=== PATIENT | male | born 1955 | race African-American/Black ===

== ENCOUNTER 2016-06-17 23:44 | Emergency (ER) | payer MEDICARE, MEDICAID ==
[~2016-06-17] VITALS: Ht 185.4 cm; Wt 103.0 kg
[~2016-06-17 23:44] MED LIST: BUM1 PO; CELL2 PO; EPOGEN; FAMO40TA35 PO; KEPP250 PO; LABE100T PO; PHOSPHA; PRED5TAB48 PO; PROG1 PO; SULF1TAB47 PO; TAMS-11 PO; VALCYTE
[2016-06-18] MEDS ORDERED: MORPHINE SULFATE 4 MG/ML CPJ (NOT FOR IM USE) IV STA (01:11)
[2016-06-18] MEDS ORDERED: ONDANSETRON HCL 4MG/2ML VIAL IV STA (01:11)
[2016-06-18] MEDS ORDERED: LABETALOL 5MG/ML SYR 20 MG/4 ML SYRINGE IV ONE (01:15)
[2016-06-18 01:50] LABS: HEMATOCRIT. 34.5 % (42.0-52.0); HEMOGLOBIN. 10.4 g/dL (14.0-18.0); MEAN CORPUSCULAR HEMOGLOBIN 25.4 pg (28.0-32.0); MEAN CORPUSCULAR HGB CONC 30.1 g/dL (31.0-37.0); MEAN CORPUSCULAR VOLUME 84.2 fL (80.0-94.0); MEAN PLATELET VOLUME 8.1 fl (7.4-10.4); PLATELET 161 x1000/uL (130-400); RED BLOOD CELL COUNT 4.09 mill/uL (4.7-6.1); RED CELL DISTRIBUTION WIDTH 17.7 % (11.6-14.6)
[2016-06-18 01:51] LABS: DIFFERENTIAL COMMENT 1
[2016-06-18 01:59] LABS: CALCIUM 8.3 mg/dL (8.5-10.1)
[2016-06-18] MEDS ORDERED: HYDRALAZINE 20MG/ML VIAL IV ONE (02:30)
[2016-06-18] MEDS ORDERED: MORPHINE SULFATE 4 MG/ML CPJ (NOT FOR IM USE) IV ONE (02:30)
[2016-06-18 02:39] LABS: PLATELET ESTIMATE NORMAL
[2016-06-18 03:45] VITALS: BP 144/87
[2016-06-20] MEDS ORDERED: LABE300T PO (10:39)
== END 2016-06-18 04:15 | disposition home or self-care (01) ==
LOC: ER 23:54
DX: R51 Headache (principal); I10 Essential (primary) hypertension; R11.0 Nausea; Z94.0 Kidney transplant status; Z79.899 Other long term (current) drug therapy
CPT/HCPCS: 36415; 70450; 80048; 85025; 96374; 96375; 96376; 99285; J0360; J2270; J2405; J3490

== ENCOUNTER 2017-08-07 09:14 | Emergency (ER) | payer MEDICAID ==
[2017-08-07] VITALS (8 sets, daily range): BP systolic 108–130; BP diastolic 63–85
[~2017-08-07] VITALS: Ht 185.4 cm; Wt 86.0 kg
[~2017-08-07 09:14] MED LIST changes: +AMLO5TAB4 PO; -BUM1 PO; +BUME1TAB5 PO; -CELL2 PO; -EPOGEN; +FAMO20TA8 PO; -FAMO40TA35 PO; +FERR325T6 PO; +MAGN400T27 PO; +MULT-1146 PO; -PHOSPHA; -PRED5TAB48 PO; -SULF1TAB47 PO; +TACR4TAB PO; -VALCYTE
[2017-08-07 10:38] LABS: EOSINOPHILS % 4.3 % (0.0-5.0); HEMOGLOBIN. 8.4 g/dL (14.0-18.0); LYMPHOCYTES % 12.1 % (20.0-50.0); MEAN CORPUSCULAR HEMOGLOBIN 26.8 pg (28.0-32.0); MEAN CORPUSCULAR VOLUME 86.1 fL (80.0-94.0); MEAN PLATELET VOLUME 7.4 fl (7.4-10.4); MONOCYTES % 10.4 % (2.0-8.0); NEUTROPHILS % 72.2 % (40.0-76.0); PLATELET 381 x1000/uL (130-400); RED BLOOD CELL COUNT 3.14 mill/uL (4.7-6.1); RED CELL DISTRIBUTION WIDTH 16.6 % (11.6-14.6)
[2017-08-07 10:42] LABS: CHLORIDE 99 mEq/L (98-107)
[2017-08-07 10:54] LABS: INR 1.1; PROTHROMBIN TIME 11.5 sec (9.4-11.6)
[2017-08-07] MEDS ORDERED: SODIUM BICARBONATE 4% (2.4MEQ) 5ML VIAL IV ONE (12:33)
[2017-08-07] MEDS ORDERED: LIDOCAINE HCL/PF 1% 10 MG/ML 5ML VIAL ONE (12:33)
[2017-08-07] MEDS ORDERED: HEPARIN 1000 UNITS/ML 10ML ONE (12:33)
[2017-08-07] MEDS ORDERED: CEFAZOLIN 1000MG PREMIX 50 ML IV ONE ×2 (13:14→13:30)
== END 2017-08-07 13:57 | disposition home or self-care (01) ==
LOC: ER 09:14
DX: T82.49XA Other complication of vascular dialysis catheter, initial encounter (principal); I12.0 Hypertensive chronic kidney disease with stage 5 chronic kidney disease or end stage renal disease; N18.6 End stage renal disease; E87.6 Hypokalemia; E88.09 Other disorders of plasma-protein metabolism, not elsewhere classified; E83.52 Hypercalcemia; Z91.09 Other allergy status, other than to drugs and biological substances; Z99.2 Dependence on renal dialysis; Z90.49 Acquired absence of other specified parts of digestive tract; Y84.1 Kidney dialysis as the cause of abnormal reaction of the patient, or of later complication, without mention of misadventure at the time of the procedure; Y92.018 Other place in single-family (private) house as the place of occurrence of the external cause
CPT/HCPCS: 36415; 36569; 36581; 75825; 77001; 80053; 85025; 85610; 96365; 99285; C1750; C1769; J0690; J1642; J1644; J3490; J7050; Z7610

== ENCOUNTER 2017-08-20 12:09 | Emergency (ER) | payer MEDICAID ==
[~2017-08-20] VITALS: Ht 185.4 cm; Wt 87.0 kg
[~2017-08-20 12:09] MED LIST changes: -FAMO20TA8 PO
[2017-08-20 13:38] LABS: BASOPHILS % 0.8 % (0.0-2.0); EOSINOPHILS % 8.4 % (0.0-5.0); HEMATOCRIT. 24.3 % (42.0-52.0); HEMOGLOBIN. 7.7 g/dL (14.0-18.0); LYMPHOCYTES % 12.6 % (20.0-50.0); MEAN CORPUSCULAR HEMOGLOBIN 27.3 pg (28.0-32.0); MEAN PLATELET VOLUME 7.3 fl (7.4-10.4); MONOCYTES % 10.3 % (2.0-8.0); NEUTROPHILS % 67.9 % (40.0-76.0); PLATELET 293 x1000/uL (130-400); RED BLOOD CELL COUNT 2.83 mill/uL (4.7-6.1); RED CELL DISTRIBUTION WIDTH 17.2 % (11.6-14.6)
[2017-08-20 13:43] LABS: INR 1.1; PROTHROMBIN TIME 11.4 sec (9.4-11.6)
[2017-08-20 15:01] VITALS: BP 121/70
== END 2017-08-20 15:02 | disposition home or self-care (01) ==
LOC: ER 13:14
DX: T82.49XA Other complication of vascular dialysis catheter, initial encounter (principal); D64.9 Anemia, unspecified; E83.52 Hypercalcemia; I12.0 Hypertensive chronic kidney disease with stage 5 chronic kidney disease or end stage renal disease; N18.6 End stage renal disease; Y82.8 Other medical devices associated with adverse incidents; Y92.538 Other ambulatory health services establishments as the place of occurrence of the external cause; Z99.2 Dependence on renal dialysis
CPT/HCPCS: 36415; 80048; 85025; 85610; 99284

== ENCOUNTER 2017-08-21 09:00 | Emergency (ER) | payer MEDICAID ==
[2017-08-21] VITALS (7 sets, daily range): BP systolic 119–127; BP diastolic 73–80
[~2017-08-21] VITALS: Ht 185.4 cm; Wt 87.0 kg
[2017-08-21 09:51] LABS: BASOPHILS % 0.8 % (0.0-2.0); EOSINOPHILS % 7.6 % (0.0-5.0); HEMATOCRIT. 25.3 % (42.0-52.0); HEMOGLOBIN. 7.9 g/dL (14.0-18.0); MEAN CORPUSCULAR HEMOGLOBIN 26.7 pg (28.0-32.0); MEAN CORPUSCULAR VOLUME 85.6 fL (80.0-94.0); MEAN PLATELET VOLUME 7.3 fl (7.4-10.4); MONOCYTES % 9.8 % (2.0-8.0); NEUTROPHILS % 71.8 % (40.0-76.0); PLATELET 304 x1000/uL (130-400); RED BLOOD CELL COUNT 2.95 mill/uL (4.7-6.1); RED CELL DISTRIBUTION WIDTH 17.7 % (11.6-14.6)
[2017-08-21 09:58] LABS: CHLORIDE 100 mEq/L (98-107)
[2017-08-21 09:59] LABS: INR 1.1; PROTHROMBIN TIME 11.3 sec (9.4-11.6)
[2017-08-21] MEDS ORDERED: SODIUM BICARBONATE 4% (2.4MEQ) 5ML VIAL IV ONE (12:58)
[2017-08-21] MEDS ORDERED: LIDOCAINE HCL/PF 1% 10 MG/ML 5ML VIAL ONE (12:58)
[2017-08-21] MEDS ORDERED: IOHEXOL-300 50 ML BOTTLE IV ONE ×2 (13:04→14:00)
[2017-08-21] MEDS ORDERED: FENTANYL CITRATE/PF 50MCG/ML 2ML VIAL ONE (13:29)
[2017-08-21] MEDS ORDERED: IOHEXOL-300 100 ML BOTTLE ONE (14:00)
== END 2017-08-21 14:59 | disposition home or self-care (01) ==
LOC: ER 09:00
DX: T82.898A Other specified complication of vascular prosthetic devices, implants and grafts, initial encounter (principal); I12.0 Hypertensive chronic kidney disease with stage 5 chronic kidney disease or end stage renal disease; N18.6 End stage renal disease; Z99.2 Dependence on renal dialysis; Z91.048 Other nonmedicinal substance allergy status; Z90.49 Acquired absence of other specified parts of digestive tract; Y84.1 Kidney dialysis as the cause of abnormal reaction of the patient, or of later complication, without mention of misadventure at the time of the procedure; Y92.018 Other place in single-family (private) house as the place of occurrence of the external cause
CPT/HCPCS: 36415; 36569; 36581; 75825; 77001; 80053; 85025; 85610; 99285; C1750; C1769; J1642; J3490; J7040; Q9967; Z7610; J3010

== ENCOUNTER 2017-11-25 07:35 | Emergency (ER) | payer MEDICAID ==
[~2017-11-25] VITALS: Ht 185.4 cm; Wt 87.6 kg
[2017-11-25 08:53] LABS: BASOPHILS % 0.6 % (0.0-2.0); EOSINOPHILS % 3.1 % (0.0-5.0); HEMATOCRIT. 26.7 % (42.0-52.0); HEMOGLOBIN. 8.2 g/dL (14.0-18.0); LYMPHOCYTES % 10.3 % (20.0-50.0); MEAN CORPUSCULAR HEMOGLOBIN 27.2 pg (28.0-32.0); MEAN CORPUSCULAR VOLUME 88.3 fL (80.0-94.0); MONOCYTES % 8.4 % (2.0-8.0); NEUTROPHILS % 77.6 % (40.0-76.0); PLATELET 647 x1000/uL (130-400); RED BLOOD CELL COUNT 3.03 mill/uL (4.7-6.1); RED CELL DISTRIBUTION WIDTH 24.3 % (11.6-14.6)
[2017-11-25 09:01] LABS: CHLORIDE 105 mEq/L (98-107)
[2017-11-25 09:04] LABS: INR 1.1; PARTIAL THROMBOPLASTIN TIME 29.1 sec (23.4-31.0); PROTHROMBIN TIME 11.5 sec (9.1-11.1)
[2017-11-25 10:14] LABS: PLATELET ESTIMATE INCREASED
[2017-11-25] MEDS ORDERED: FENTANYL CITRATE/PF 50MCG/ML 2ML VIAL ONE (10:58)
[2017-11-25] MEDS ORDERED: CEFAZOLIN 1000MG PREMIX 50 ML IV ONE ×3 (10:59→12:30)
[2017-11-25] MEDS ORDERED: MIDAZOLAM HCL 2 MG/2 ML VIAL ONE (10:59)
[2017-11-25] MEDS ORDERED: MIDAZOLAM HCL 2 MG/2 ML VIAL IV ONE (11:00)
[2017-11-25] MEDS ORDERED: FENTANYL CITRATE/PF 50MCG/ML 2ML VIAL IV ONE (11:00)
[2017-11-25] MEDS ORDERED: PREDNISONE 20MG TABLET PO ONE (11:15)
[2017-11-25] MEDS ORDERED: SODIUM BICARBONATE 4% (2.4MEQ) 5ML VIAL IV ONE (11:26)
[2017-11-25] MEDS ORDERED: LIDOCAINE HCL 1% 20ML VIAL (Pyxis) INJ ONE (11:26)
[2017-11-25 11:38] VITALS: BP 160/69
== END 2017-11-25 14:43 | disposition home or self-care (01) ==
LOC: ER 09:15
DX: N18.6 End stage renal disease (principal); Z99.2 Dependence on renal dialysis; Z90.49 Acquired absence of other specified parts of digestive tract
CPT/HCPCS: 36415; 36581; 36598; 77001; 80053; 85025; 85610; 85730; 96365; 96366; 96375; 99285; C1750; C1769; J0690; J1642; J2250; J3010; J3490; J7040; J7512; Z7610

== ENCOUNTER 2018-01-27 07:23 | Emergency (ER) | payer MEDICARE, MEDICAID ==
[2018-01-27] VITALS (10 sets, daily range): BP systolic 142–171; BP diastolic 80–99
[~2018-01-27] VITALS: Ht 182.9 cm; Wt 91.4 kg
[2018-01-27 08:44] LABS: EOSINOPHILS % 7.6 % (0.0-5.0); HEMATOCRIT. 29.9 % (42.0-52.0); HEMOGLOBIN. 9.4 g/dL (14.0-18.0); LYMPHOCYTES % 13.4 % (20.0-50.0); MEAN CORPUSCULAR HEMOGLOBIN 28.8 pg (28.0-32.0); MEAN CORPUSCULAR VOLUME 92.1 fL (80.0-94.0); MEAN PLATELET VOLUME 8.3 fl (7.4-10.4); MONOCYTES % 14.5 % (2.0-8.0); NEUTROPHILS % 63.5 % (40.0-76.0); PLATELET 334 x1000/uL (130-400); RED BLOOD CELL COUNT 3.25 mill/uL (4.7-6.1); RED CELL DISTRIBUTION WIDTH 18.5 % (11.6-14.6)
[2018-01-27 08:54] LABS: INR 1.1; PARTIAL THROMBOPLASTIN TIME 26.2 sec (23.4-31.0)
[2018-01-27 08:58] LABS: CHLORIDE 101 mEq/L (98-107)
[2018-01-27] MEDS ORDERED: CEFAZOLIN 1000MG PREMIX 50 ML IV ONE (09:00)
[2018-01-27] MEDS ORDERED: FENTANYL CITRATE/PF 50MCG/ML 2ML VIAL ONE (09:26)
[2018-01-27] MEDS ORDERED: SODIUM BICARBONATE 4% (2.4MEQ) 5ML VIAL IV ONE (09:26)
[2018-01-27] MEDS ORDERED: LIDOCAINE HCL 1% 20ML VIAL (Pyxis) INJ ONE (09:26)
[2018-01-27] MEDS ORDERED: HEPARIN 1000 UNITS/ML 10ML ONE (09:38)
[2018-01-27] MEDS ORDERED: FENTANYL CITRATE/PF 50MCG/ML 2ML VIAL IV ONE (10:15)
== END 2018-01-27 11:10 | disposition home or self-care (01) ==
LOC: ER 07:23
DX: T82.42XA Displacement of vascular dialysis catheter, initial encounter (principal); N18.6 End stage renal disease; Z99.2 Dependence on renal dialysis; Z90.89 Acquired absence of other organs
CPT/HCPCS: 36415; 36581; 77001; 80053; 85025; 85610; 85730; 96365; 99284; C1769; J0690; J1644; J3010; J3490; 99152; 99153; C1750; J7050; G0500

== ENCOUNTER 2018-02-23 10:53 | Emergency (ER) | payer MEDICARE, MEDICAID ==
[~2018-02-23] VITALS: Ht 175.3 cm; Wt 93.1 kg
[2018-02-23 15:00] VITALS: BP 145/83
[2018-02-23] MEDS ORDERED: SODIUM BICARBONATE 4% (2.4MEQ) 5ML VIAL IV ONE (15:11)
[2018-02-23] MEDS ORDERED: LIDOCAINE HCL 1% 20ML VIAL (Pyxis) INJ ONE (15:11)
== END 2018-02-23 16:27 | disposition home or self-care (01) ==
LOC: ER 10:53
DX: T82.49XA Other complication of vascular dialysis catheter, initial encounter (principal); Y84.1 Kidney dialysis as the cause of abnormal reaction of the patient, or of later complication, without mention of misadventure at the time of the procedure; N18.6 End stage renal disease; Z99.2 Dependence on renal dialysis; Z90.49 Acquired absence of other specified parts of digestive tract; Z91.048 Other nonmedicinal substance allergy status; Y92.018 Other place in single-family (private) house as the place of occurrence of the external cause
CPT/HCPCS: 36581; 77001; 99284; C1769; J1642; J3490; C1750

== ENCOUNTER 2018-03-05 07:27 | Emergency (ER) | payer MEDICARE, MEDICAID ==
[~2018-03-05] VITALS: Ht 175.3 cm; Wt 92.3 kg
[2018-03-05] MEDS ORDERED: HEPARIN 1000 UNITS/ML 10ML ONE (07:58)
[2018-03-05] MEDS ORDERED: SODIUM BICARBONATE 4% (2.4MEQ) 5ML VIAL IV ONE (07:58)
[2018-03-05] MEDS ORDERED: LIDOCAINE HCL 1% 20ML VIAL (Pyxis) INJ ONE (07:58)
[2018-03-05 09:35] LABS: BASOPHILS % 1.1 % (0.0-2.0); EOSINOPHILS % 8.2 % (0.0-5.0); HEMOGLOBIN. 9.8 g/dL (14.0-18.0); LYMPHOCYTES % 16.5 % (20.0-50.0); MEAN CORPUSCULAR HEMOGLOBIN 27.3 pg (28.0-32.0); MEAN CORPUSCULAR VOLUME 89.2 fL (80.0-94.0); MONOCYTES % 12.4 % (2.0-8.0); NEUTROPHILS % 61.8 % (40.0-76.0); PLATELET 261 x1000/uL (130-400); RED BLOOD CELL COUNT 3.59 mill/uL (4.7-6.1); RED CELL DISTRIBUTION WIDTH 17.2 % (11.6-14.6)
[2018-03-05 09:41] LABS: CHLORIDE 104 mEq/L (98-107)
[2018-03-05 09:42] LABS: INR 1.1; PROTHROMBIN TIME 11.3 sec (9.1-11.1)
[2018-03-05 11:00] VITALS: BP 177/95
[2018-03-05 11:06] VITALS: BP 184/95
[2018-03-05 11:15] VITALS: BP 184/95
[2018-03-05 11:17] VITALS: BP 184/95
[2018-03-05 12:00] VITALS: BP 153/88
== END 2018-03-05 12:16 | disposition home or self-care (01) ==
LOC: ER 07:27
DX: T82.49XA Other complication of vascular dialysis catheter, initial encounter (principal); N18.6 End stage renal disease; Z99.2 Dependence on renal dialysis
CPT/HCPCS: 36415; 36582; 77001; 80053; 85025; 85610; 99284; C1769; J1644; J3490; C1750

== ENCOUNTER 2018-06-18 06:21 | Emergency (ER) | payer MEDICARE, MEDICAID ==
[2018-06-18] VITALS (13 sets, daily range): BP systolic 138–163; BP diastolic 58–94
[~2018-06-18] VITALS: Ht 185.4 cm; Wt 91.0 kg
[2018-06-18 07:38] LABS: HEMATOCRIT. 36.3 % (42.0-52.0); HEMOGLOBIN. 11.3 g/dL (14.0-18.0); MEAN CORPUSCULAR HEMOGLOBIN 27.1 pg (28.0-32.0); MEAN PLATELET VOLUME 7.7 fl (7.4-10.4); PLATELET 237 x1000/uL (130-400); RED BLOOD CELL COUNT 4.17 mill/uL (4.7-6.1); RED CELL DISTRIBUTION WIDTH 18.3 % (11.6-14.6)
[2018-06-18 07:47] LABS: CHLORIDE 101 mEq/L (98-107)
[2018-06-18] MEDS ORDERED: CEFAZOLIN 1000MG PREMIX 50 ML IV ONE ×2 (08:00→08:43)
[2018-06-18 08:08] LABS: INR 1.1; PROTHROMBIN TIME 10.9 sec (9.6-11.0)
[2018-06-18 08:10] LABS: PLATELET ESTIMATE NORMAL
[2018-06-18] MEDS ORDERED: FENTANYL CITRATE/PF 50MCG/ML 2ML VIAL ONE (08:44)
[2018-06-18] MEDS ORDERED: LIDOCAINE HCL 1% 20ML VIAL (Pyxis) INJ ONE (08:44)
[2018-06-18] MEDS ORDERED: SODIUM BICARBONATE 4% (2.4MEQ) 5ML VIAL IV ONE (08:44)
[2018-06-18] MEDS ORDERED: FENTANYL CITRATE/PF 50MCG/ML 2ML VIAL IV NR (09:45)
== END 2018-06-18 11:20 | disposition home or self-care (01) ==
LOC: ER 06:21
DX: Z45.2 Encounter for adjustment and management of vascular access device (principal); I12.9 Hypertensive chronic kidney disease with stage 1 through stage 4 chronic kidney disease, or unspecified chronic kidney disease; N18.9 Chronic kidney disease, unspecified; Z90.89 Acquired absence of other organs; Z94.0 Kidney transplant status
CPT/HCPCS: 36415; 36581; 77001; 80053; 85025; 85610; 96365; 96375; 99284; C1750; C1769; J0690; J1642; J3010; J3490

== ENCOUNTER 2018-07-27 11:45 | Emergency (ER) | payer MEDICARE, MEDICAID ==
[~2018-07-27] VITALS: Ht 185.4 cm; Wt 90.0 kg
[~2018-07-27 11:45] MED LIST changes: -AMLO5TAB4 PO; -BUME1TAB5 PO; +CALC0.253 MT; +FERR325T6 MT; -FERR325T6 PO; -KEPP250 PO; -LABE100T PO; -MAGN400T27 PO; -MULT-1146 PO; +NEPVIT MT; +PRED10TA PO; -PROG1 PO; -TACR4TAB PO
[2018-07-27] MEDS ORDERED: LIDOCAINE HCL 1% 20ML VIAL (Pyxis) INJ ONE (12:49)
[2018-07-27] MEDS ORDERED: SODIUM BICARBONATE 4% (2.4MEQ) 5ML VIAL IV ONE (12:49)
[2018-07-27 13:56] VITALS: BP 152/82
== END 2018-07-27 13:59 | disposition home or self-care (01) ==
LOC: ER 11:45
DX: T81.31XA Disruption of external operation (surgical) wound, not elsewhere classified, initial encounter (principal); Y82.8 Other medical devices associated with adverse incidents; Y92.098 Other place in other non-institutional residence as the place of occurrence of the external cause; I12.0 Hypertensive chronic kidney disease with stage 5 chronic kidney disease or end stage renal disease; N18.6 End stage renal disease; Z99.2 Dependence on renal dialysis; Z90.49 Acquired absence of other specified parts of digestive tract
CPT/HCPCS: 99283; J1642; J3490; 12001

== ENCOUNTER 2018-08-28 11:16 | Emergency (ER) | payer MEDICARE, MEDICAID ==
[~2018-08-28] VITALS: Ht 188 cm; Wt 90.0 kg
[2018-08-28] VITALS (11 sets, daily range): BP systolic 129–159; BP diastolic 71–89
[2018-08-28] MEDS ORDERED: HEPARIN 1000 UNITS/ML 10ML ONE (12:34)
[2018-08-28] MEDS ORDERED: SODIUM BICARBONATE 4% (2.4MEQ) 5ML VIAL IV ONE (12:34)
[2018-08-28] MEDS ORDERED: LIDOCAINE HCL 1% 20ML VIAL (Pyxis) INJ ONE (12:34)
[2018-08-28] MEDS ORDERED: CEFAZOLIN 1000MG PREMIX 50 ML IV ONE (13:01)
[2018-08-28] MEDS ORDERED: FENTANYL CITRATE/PF 50MCG/ML 2ML VIAL ONE (13:02)
[2018-08-28] MEDS ORDERED: FENTANYL CITRATE/PF 50MCG/ML 2ML VIAL IV SCH (13:15)
[2018-08-28] MEDS ORDERED: CEFAZOLIN 1000MG PREMIX 50 ML IV SCH (13:15)
== END 2018-08-28 14:50 | disposition left against medical advice (07) ==
LOC: ER 11:16
DX: T83.098A Other mechanical complication of other urinary catheter, initial encounter (principal); I12.0 Hypertensive chronic kidney disease with stage 5 chronic kidney disease or end stage renal disease; N18.6 End stage renal disease; Z99.2 Dependence on renal dialysis; Z90.49 Acquired absence of other specified parts of digestive tract
CPT/HCPCS: 36581; 77001; 96365; 96375; 99284; C1750; C1769; J0690; J1644; J3010; J3490; J7050

== ENCOUNTER 2019-02-23 07:44 | Emergency (ER) | payer MEDICARE, MEDICAID ==
[2019-02-23] VITALS (14 sets, daily range): BP systolic 180–196; BP diastolic 100–111
[~2019-02-23] VITALS: Ht 185.4 cm; Wt 88.0 kg
[2019-02-23 11:31] LABS: BASOPHILS % 1.1 % (0.0-2.0); HEMATOCRIT. 34.3 % (42.0-52.0); HEMOGLOBIN. 11.2 g/dL (14.0-18.0); LYMPHOCYTES % 16.4 % (20.0-50.0); MEAN CORPUSCULAR HEMOGLOBIN 29.5 pg (28.0-32.0); MEAN CORPUSCULAR VOLUME 89.8 fL (80.0-94.0); MONOCYTES % 13.2 % (2.0-8.0); NEUTROPHILS % 60.3 % (40.0-76.0); PLATELET 225 x1000/uL (130-400); RED BLOOD CELL COUNT 3.82 mill/uL (4.7-6.1); RED CELL DISTRIBUTION WIDTH 16.3 % (11.6-14.6)
[2019-02-23 11:34] LABS: CHLORIDE 108 mEq/L (98-107)
[2019-02-23 11:35] LABS: PROTHROMBIN TIME 10.7 sec (9.6-11.0)
[2019-02-23] MEDS ORDERED: HEPARIN 1000 UNITS/ML 10ML ONE (11:52)
[2019-02-23] MEDS ORDERED: LIDOCAINE HCL 1% 20ML VIAL (Pyxis) INJ ONE (11:52)
[2019-02-23] MEDS ORDERED: SODIUM BICARBONATE 4% (2.4MEQ) 5ML VIAL IV ONE (11:52)
[2019-02-23] MEDS ORDERED: CEFAZOLIN 1000MG PREMIX 50 ML IV ONE ×2 (11:55→12:45)
[2019-02-23] MEDS ORDERED: FENTANYL CITRATE/PF 50MCG/ML 2ML VIAL ONE (12:05)
[2019-02-23] MEDS ORDERED: FENTANYL CITRATE/PF 50MCG/ML 2ML VIAL IV ONE (12:45)
[2019-02-23] MEDS ORDERED: FENTANYL CITRATE/PF 50MCG/ML 2ML VIAL IV SCH (13:15)
[2019-02-23] MEDS ORDERED: CEFAZOLIN 1000MG PREMIX 50 ML IV SCH (13:15)
== END 2019-02-23 13:43 | disposition home or self-care (01) ==
LOC: ER 07:44
DX: T83.098A Other mechanical complication of other urinary catheter, initial encounter (principal); I10 Essential (primary) hypertension; Z99.2 Dependence on renal dialysis; Z98.890 Other specified postprocedural states; Z90.49 Acquired absence of other specified parts of digestive tract
CPT/HCPCS: 36415; 36558; 77001; 80053; 85025; 85610; 96365; 96375; 99284; C1750; C1769; J0690; J1644; J3010; J3490; 99152; 99153; G0500

== ENCOUNTER 2019-05-05 11:28 | Emergency (ER) | payer MEDICARE, MEDICAID ==
[~2019-05-05] VITALS: Ht 175.3 cm; Wt 82.0 kg
[2019-05-05] VITALS (14 sets, daily range): BP systolic 155–194; BP diastolic 80–105
[2019-05-05] MEDS ORDERED: FENTANYL CITRATE/PF 50MCG/ML 2ML VIAL ONE (12:59)
[2019-05-05] MEDS ORDERED: CEFAZOLIN 1000MG PREMIX 50 ML IV ONE ×2 (12:59→13:00)
[2019-05-05] MEDS ORDERED: HEPARIN 1000 UNITS/ML 10ML ONE (13:16)
[2019-05-05] MEDS ORDERED: LIDOCAINE HCL 1% 20ML VIAL (Pyxis) INJ ONE (13:17)
[2019-05-05] MEDS ORDERED: SODIUM BICARBONATE 4% (2.4MEQ) 5ML VIAL IV ONE (13:17)
[2019-05-05 13:21] LABS: BASOPHILS % 1.2 % (0.0-2.0); EOSINOPHILS % 7.1 % (0.0-5.0); HEMATOCRIT. 33.1 % (42.0-52.0); HEMOGLOBIN. 10.9 g/dL (14.0-18.0); LYMPHOCYTES % 14.6 % (20.0-50.0); MEAN CORPUSCULAR HEMOGLOBIN 29.9 pg (28.0-32.0); MEAN CORPUSCULAR VOLUME 91.1 fL (80.0-94.0); MEAN PLATELET VOLUME 8.1 fl (7.4-10.4); MONOCYTES % 13.4 % (2.0-8.0); NEUTROPHILS % 63.7 % (40.0-76.0); PLATELET 236 x1000/uL (130-400); RED BLOOD CELL COUNT 3.64 mill/uL (4.7-6.1); RED CELL DISTRIBUTION WIDTH 17.3 % (11.6-14.6)
[2019-05-05 13:27] LABS: CHLORIDE 103 mEq/L (98-107)
[2019-05-05] MEDS ORDERED: FENTANYL CITRATE/PF 50MCG/ML 2ML VIAL IV SCH (14:00)
== END 2019-05-05 15:08 | disposition home or self-care (01) ==
LOC: ER 11:28
DX: T85.691A Other mechanical complication of intraperitoneal dialysis catheter, initial encounter (principal); I12.0 Hypertensive chronic kidney disease with stage 5 chronic kidney disease or end stage renal disease; N18.6 End stage renal disease; Z99.2 Dependence on renal dialysis; Z90.49 Acquired absence of other specified parts of digestive tract; Z98.890 Other specified postprocedural states; Z79.899 Other long term (current) drug therapy; Y92.89 Other specified places as the place of occurrence of the external cause
CPT/HCPCS: 36415; 36581; 77001; 80053; 85025; 85610; 96365; 96375; 99284; C1750; C1769; J0690; J1644; J3010; J3490; 99152; 99153; G0500

== ENCOUNTER 2019-06-24 07:04 | Emergency (ER) | payer MEDICARE, MEDICAID ==
[2019-06-24] VITALS (12 sets, daily range): BP systolic 114–149; BP diastolic 66–91
[~2019-06-24] VITALS: Ht 170.2 cm; Wt 71.0 kg
[2019-06-24 08:06] LABS: BASOPHILS % 1.4 % (0.0-2.0); EOSINOPHILS % 5.2 % (0.0-5.0); HEMATOCRIT. 39.4 % (42.0-52.0); HEMOGLOBIN. 12.9 g/dL (14.0-18.0); LYMPHOCYTES % 17.8 % (20.0-50.0); MEAN CORPUSCULAR HEMOGLOBIN 30.3 pg (28.0-32.0); MEAN CORPUSCULAR VOLUME 92.6 fL (80.0-94.0); MEAN PLATELET VOLUME 8.5 fl (7.4-10.4); NEUTROPHILS % 63.6 % (40.0-76.0); PLATELET 276 x1000/uL (130-400); RED BLOOD CELL COUNT 4.26 mill/uL (4.7-6.1); RED CELL DISTRIBUTION WIDTH 15.4 % (11.6-14.6)
[2019-06-24 08:15] LABS: PARTIAL THROMBOPLASTIN TIME 25.4 sec (23.4-31.0); PROTHROMBIN TIME 10.8 sec (9.6-11.0)
[2019-06-24] MEDS ORDERED: LIDOCAINE HCL 1% 20ML VIAL (Pyxis) INJ ONE (08:37)
[2019-06-24] MEDS ORDERED: SODIUM BICARBONATE 4% (2.4MEQ) 5ML VIAL IV ONE (08:37)
[2019-06-24] MEDS ORDERED: CEFAZOLIN 1000MG PREMIX 50 ML IV SCH (09:00)
[2019-06-24] MEDS ORDERED: FENTANYL CITRATE/PF 50MCG/ML 2ML VIAL ONE (09:13)
[2019-06-24] MEDS ORDERED: CEFAZOLIN 1000MG PREMIX 50 ML IV ONE (09:13)
[2019-06-24] MEDS ORDERED: FENTANYL CITRATE/PF 50MCG/ML 2ML VIAL IV ONE (09:45)
[2019-06-24] MEDS ORDERED: FENTANYL CITRATE/PF 50MCG/ML 2ML VIAL IV SCH (10:00)
== END 2019-06-24 10:27 | disposition home or self-care (01) ==
LOC: ER 07:04
DX: T82.898A Other specified complication of vascular prosthetic devices, implants and grafts, initial encounter (principal); I12.0 Hypertensive chronic kidney disease with stage 5 chronic kidney disease or end stage renal disease; N18.6 End stage renal disease; Z91.048 Other nonmedicinal substance allergy status; Z90.49 Acquired absence of other specified parts of digestive tract; Z99.2 Dependence on renal dialysis; Y84.1 Kidney dialysis as the cause of abnormal reaction of the patient, or of later complication, without mention of misadventure at the time of the procedure; Y92.018 Other place in single-family (private) house as the place of occurrence of the external cause
CPT/HCPCS: 36415; 36581; 77001; 80048; 83735; 84100; 85025; 85610; 85730; 96365; 99285; C1750; C1769; J0690; J1642; J3010; J3490; 96375; 99152; 99153; 99284; G0500

== ENCOUNTER 2019-07-19 07:34 | Emergency (ER) | payer MEDICARE, MEDICAID ==
[~2019-07-19] VITALS: Ht 172.7 cm; Wt 75.0 kg
[2019-07-19 09:59] LABS: HEMOGLOBIN. 11.2 g/dL (14.0-18.0); MEAN CORPUSCULAR HEMOGLOBIN 31.3 pg (28.0-32.0); MEAN CORPUSCULAR VOLUME 95.2 fL (80.0-94.0); MEAN PLATELET VOLUME 8.6 fl (7.4-10.4); PLATELET 211 x1000/uL (130-400); RED BLOOD CELL COUNT 3.57 mill/uL (4.7-6.1); RED CELL DISTRIBUTION WIDTH 15.7 % (11.6-14.6)
[2019-07-19 10:07] LABS: PROTHROMBIN TIME 11.2 sec (9.6-11.0)
[2019-07-19] MEDS ORDERED: LIDOCAINE HCL 1% 20ML VIAL (Pyxis) INJ ONE (10:24)
[2019-07-19] MEDS ORDERED: SODIUM BICARBONATE 4% (2.4MEQ) 5ML VIAL IV ONE (10:24)
[2019-07-19 10:45] LABS: PLATELET ESTIMATE NORMAL
[2019-07-19] MEDS ORDERED: HEPARIN 5000 UNITS/ML VIAL IV ONE (11:00)
[2019-07-19 11:54] VITALS: BP 149/83
[2019-07-19 11:54] LABS: CHLORIDE 106 mEq/L (98-107)
== END 2019-07-19 12:06 | disposition home or self-care (01) ==
LOC: ER 07:34
DX: T82.49XA Other complication of vascular dialysis catheter, initial encounter (principal); R51 Headache; M54.2 Cervicalgia; N18.6 End stage renal disease; Z99.2 Dependence on renal dialysis; Z91.09 Other allergy status, other than to drugs and biological substances; Y84.1 Kidney dialysis as the cause of abnormal reaction of the patient, or of later complication, without mention of misadventure at the time of the procedure; Y92.018 Other place in single-family (private) house as the place of occurrence of the external cause
CPT/HCPCS: 12001; 36415; 71045; 80053; 85025; 85610; 93005; 99285; J1642; J3490

== ENCOUNTER 2019-08-26 07:05 | Emergency (ER) | payer MEDICARE, MEDICAID ==
[2019-08-26] VITALS (11 sets, daily range): BP systolic 113–171; BP diastolic 63–90
[~2019-08-26] VITALS: Ht 172.7 cm; Wt 75.0 kg
[2019-08-26] MEDS ORDERED: SODIUM BICARBONATE 4% (2.4MEQ) 5ML VIAL IV ONE (07:59)
[2019-08-26] MEDS ORDERED: LIDOCAINE HCL 1% 20ML VIAL (Pyxis) INJ ONE (07:59)
[2019-08-26] MEDS ORDERED: CEFAZOLIN 1000MG PREMIX 50 ML IV ONE ×2 (08:43→09:00)
[2019-08-26] MEDS ORDERED: FENTANYL CITRATE/PF 50MCG/ML 2ML VIAL ONE (08:43)
[2019-08-26] MEDS ORDERED: FENTANYL CITRATE/PF 50MCG/ML 2ML VIAL IV ONE (09:15)
== END 2019-08-26 10:30 | disposition home or self-care (01) ==
LOC: ER 07:05
DX: T82.41XA Breakdown (mechanical) of vascular dialysis catheter, initial encounter (principal); Y82.8 Other medical devices associated with adverse incidents; Y92.9 Unspecified place or not applicable; N18.6 End stage renal disease; Z90.5 Acquired absence of kidney; Z94.0 Kidney transplant status; Z99.2 Dependence on renal dialysis
CPT/HCPCS: 36558; 51702; 77001; 99284; C1750; C1769; J0690; J1642; J3010; J3490; 99152; 99153; G0500

== ENCOUNTER 2019-09-21 06:52 | Emergency (ER) | payer MEDICARE, MEDICAID ==
[2019-09-21] VITALS (12 sets, daily range): BP systolic 130–145; BP diastolic 77–95
[~2019-09-21] VITALS: Ht 185.4 cm; Wt 75.0 kg
[2019-09-21] MEDS ORDERED: FENTANYL CITRATE/PF 50MCG/ML 2ML VIAL ONE (07:52)
[2019-09-21] MEDS ORDERED: CEFAZOLIN 1000MG PREMIX 50 ML IV ONE ×2 (07:52→08:45)
[2019-09-21 07:53] LABS: EOSINOPHILS % 5.4 % (0.0-5.0); HEMOGLOBIN. 11.8 g/dL (14.0-18.0); LYMPHOCYTES % 18.6 % (20.0-50.0); MEAN CORPUSCULAR HEMOGLOBIN 30.3 pg (28.0-32.0); MEAN CORPUSCULAR VOLUME 94.8 fL (80.0-94.0); MEAN PLATELET VOLUME 8.9 fl (7.4-10.4); MONOCYTES % 9.7 % (2.0-8.0); NEUTROPHILS % 65.3 % (40.0-76.0); PLATELET 228 x1000/uL (130-400); RED CELL DISTRIBUTION WIDTH 16.4 % (11.6-14.6)
[2019-09-21] MEDS ORDERED: SODIUM BICARBONATE 4% (2.4MEQ) 5ML VIAL IV ONE (07:54)
[2019-09-21] MEDS ORDERED: HEPARIN 1000 UNITS/ML 10ML ONE (07:54)
[2019-09-21] MEDS ORDERED: LIDOCAINE HCL 1% 20ML VIAL (Pyxis) INJ ONE (07:55)
[2019-09-21 07:59] LABS: CHLORIDE 101 mEq/L (98-107)
[2019-09-21 08:03] LABS: PROTHROMBIN TIME 10.9 sec (9.6-11.0)
[2019-09-21] MEDS ORDERED: FENTANYL CITRATE/PF 50MCG/ML 2ML VIAL IV ONE (09:15)
[2019-09-21] MEDS ORDERED: FENTANYL CITRATE/PF 50MCG/ML 2ML VIAL IV SCH (09:15)
[2019-09-21] MEDS ORDERED: CEFAZOLIN 1000MG PREMIX 50 ML IV SCH (09:15)
== END 2019-09-21 09:37 | disposition home or self-care (01) ==
LOC: ER 06:52
DX: T82.49XA Other complication of vascular dialysis catheter, initial encounter (principal); Z79.899 Other long term (current) drug therapy; Z98.890 Other specified postprocedural states
CPT/HCPCS: 36415; 36558; 77001; 80053; 85025; 85610; 93005; 96365; 96375; 99284; C1750; C1769; J0690; J1644; J3010; J3490; 51702; 99152; 99153; G0500

== ENCOUNTER 2019-09-30 07:23 | Emergency (ER) | payer MEDICARE, MEDICAID ==
[2019-09-30] VITALS (11 sets, daily range): BP systolic 110–125; BP diastolic 69–89
[~2019-09-30] VITALS: Ht 182.9 cm; Wt 73.0 kg
[2019-09-30] MEDS ORDERED: LIDOCAINE HCL 1% 20ML VIAL (Pyxis) INJ ONE (08:15)
[2019-09-30] MEDS ORDERED: SODIUM BICARBONATE 4% (2.4MEQ) 5ML VIAL IV ONE (08:15)
[2019-09-30] MEDS ORDERED: FENTANYL CITRATE/PF 50MCG/ML 2ML VIAL ONE (08:34)
[2019-09-30] MEDS ORDERED: CEFAZOLIN 1000MG PREMIX 50 ML IV ONE (08:37)
[2019-09-30] MEDS ORDERED: FENTANYL CITRATE/PF 50MCG/ML 2ML VIAL IV ONE (08:45)
[2019-09-30] MEDS ORDERED: HEPARIN 1000 UNITS/ML 10ML ONE (09:09)
== END 2019-09-30 09:42 | disposition home or self-care (01) ==
LOC: ER 07:23
DX: T82.49XA Other complication of vascular dialysis catheter, initial encounter (principal); N18.6 End stage renal disease; Z94.0 Kidney transplant status; Z91.09 Other allergy status, other than to drugs and biological substances; Y84.6 Urinary catheterization as the cause of abnormal reaction of the patient, or of later complication, without mention of misadventure at the time of the procedure; Y92.018 Other place in single-family (private) house as the place of occurrence of the external cause
CPT/HCPCS: 36558; 77001; 93005; 99284; C1750; C1769; J0690; J1642; J1644; J3010; J3490

== ENCOUNTER 2019-10-19 06:54 | Emergency (ER) | payer MEDICARE, MEDICAID ==
[2019-10-19] VITALS (23 sets, daily range): BP systolic 91–118; BP diastolic 48–74
[~2019-10-19] VITALS: Ht 175.3 cm; Wt 70.5 kg
[2019-10-19 08:17] LABS: HEMATOCRIT. 36.4 % (42.0-52.0); HEMOGLOBIN. 11.7 g/dL (14.0-18.0); LYMPHOCYTES % 16.3 % (20.0-50.0); MEAN CORPUSCULAR HEMOGLOBIN 30.4 pg (28.0-32.0); MEAN CORPUSCULAR VOLUME 94.2 fL (80.0-94.0); NEUTROPHILS % 67.5 % (40.0-76.0); PLATELET 216 x1000/uL (130-400); RED BLOOD CELL COUNT 3.87 mill/uL (4.7-6.1); RED CELL DISTRIBUTION WIDTH 15.4 % (11.6-14.6)
[2019-10-19 08:18] LABS: BASOPHILS % 0.6 % (0.0-2.0); EOSINOPHILS % 4.5 % (0.0-5.0); MONOCYTES % 11.1 % (2.0-8.0)
[2019-10-19 08:25] LABS: CHLORIDE 99 mEq/L (98-107)
[2019-10-19 08:28] LABS: PROTHROMBIN TIME 10.8 sec (9.6-11.0)
[2019-10-19] MEDS ORDERED: CEFAZOLIN 1000MG PREMIX 50 ML IV ONE ×2 (09:15→09:45)
[2019-10-19] MEDS ORDERED: LIDOCAINE HCL/EPINEPHRINE 1%-EPI 1:100,000 20 ML VIAL ONE (10:25)
[2019-10-19] MEDS ORDERED: HEPARIN 1000 UNITS/ML 10ML ONE (10:28)
[2019-10-19] MEDS ORDERED: FENTANYL CITRATE/PF 50MCG/ML 2ML VIAL ONE (10:47)
[2019-10-19] MEDS ORDERED: FENTANYL CITRATE/PF 50MCG/ML 2ML VIAL IV ONE ×4 (11:00→12:30)
[2019-10-19] MEDS ORDERED: IOHEXOL-300 50 ML BOTTLE IV ONE ×2 (11:03→11:32)
[2019-10-19] MEDS ORDERED: FENTANYL CITRATE/PF 50MCG/ML 2ML VIAL IV NR (11:45)
[2019-10-19] MEDS ORDERED: LIDOCAINE HCL 1% 20ML VIAL (Pyxis) INJ ONE (13:05)
[2019-10-19] MEDS ORDERED: SODIUM BICARBONATE 4% (2.4MEQ) 5ML VIAL IV ONE (13:05)
== END 2019-10-19 12:49 | disposition home or self-care (01) ==
LOC: ER 06:54
DX: T82.41XA Breakdown (mechanical) of vascular dialysis catheter, initial encounter (principal); N18.6 End stage renal disease; Z99.2 Dependence on renal dialysis; Z79.899 Other long term (current) drug therapy; Z94.0 Kidney transplant status; Z98.890 Other specified postprocedural states; Y92.89 Other specified places as the place of occurrence of the external cause
CPT/HCPCS: 36415; 36581; 37248; 76937; 77001; 80053; 85025; 85610; 96365; 96375; 96376; 99285; C1725; C1750; C1769; C1887; J0690; J1644; J3010; J3490; Q9967; 99152; 99153; 99284; J1642; G0500

== ENCOUNTER 2019-11-19 10:25 | Emergency (ER) | payer MEDICARE, MEDICAID ==
[~2019-11-19] VITALS: Ht 175.3 cm; Wt 72.0 kg
[2019-11-19] MEDS ORDERED: SODIUM BICARBONATE 4% (2.4MEQ) 5ML VIAL IV ONE (11:45)
[2019-11-19] MEDS ORDERED: LIDOCAINE HCL 1% 20ML VIAL (Pyxis) INJ ONE (11:45)
[2019-11-19] MEDS ORDERED: CEFAZOLIN 1000MG PREMIX 50 ML IV ONE (11:50)
[2019-11-19] MEDS ORDERED: FENTANYL CITRATE/PF 50MCG/ML 2ML VIAL ONE (11:50)
[2019-11-19 11:55] VITALS: BP 100/57
[2019-11-19 12:10] VITALS: BP 84/53
[2019-11-19 12:12] VITALS: BP 100/57
[2019-11-19 12:25] VITALS: BP 82/57
[2019-11-19] MEDS ORDERED: CEFAZOLIN 1000MG PREMIX 50 ML IV SCH (12:45)
[2019-11-19 12:56] VITALS: BP 126/81
== END 2019-11-19 12:55 | disposition home or self-care (01) ==
LOC: ER 10:51
DX: T82.49XA Other complication of vascular dialysis catheter, initial encounter (principal); Z79.899 Other long term (current) drug therapy; Y92.89 Other specified places as the place of occurrence of the external cause
CPT/HCPCS: 36558; 77001; 96365; 99284; C1750; C1769; J0690; J1642; J3010; J3490

== ENCOUNTER 2020-04-27 06:56 | Emergency (ER) | payer MEDICARE, MEDICAID ==
[2020-04-27] VITALS (11 sets, daily range): BP systolic 113–141; BP diastolic 73–85
[~2020-04-27] VITALS: Ht 175.3 cm; Wt 81.0 kg
[2020-04-27] MEDS ORDERED: HEPARIN 1000 UNITS/ML 10ML ONE (07:51)
[2020-04-27] MEDS ORDERED: LIDOCAINE HCL 1% 20ML VIAL (Pyxis) INJ ONE (07:51)
[2020-04-27] MEDS ORDERED: CEFAZOLIN 1000MG PREMIX 50 ML IV SCH (08:00)
[2020-04-27 08:07] LABS: BASOPHILS % 0.8 % (0.0-2.0); EOSINOPHILS % 6.4 % (0.0-5.0); HEMATOCRIT. 34.5 % (42.0-52.0); HEMOGLOBIN. 10.7 g/dL (14.0-18.0); LYMPHOCYTES % 15.6 % (20.0-50.0); MEAN CORPUSCULAR HEMOGLOBIN 29.9 pg (28.0-32.0); MEAN CORPUSCULAR VOLUME 96.7 fL (80.0-94.0); MEAN PLATELET VOLUME 8.8 fl (7.4-10.4); MONOCYTES % 11.6 % (2.0-8.0); NEUTROPHILS % 65.6 % (40.0-76.0); PLATELET 196 x1000/uL (130-400); RED BLOOD CELL COUNT 3.56 mill/uL (4.7-6.1); RED CELL DISTRIBUTION WIDTH 16.1 % (11.6-14.6)
[2020-04-27] MEDS ORDERED: CEFAZOLIN 1000MG PREMIX 50 ML IV ONE (08:07)
[2020-04-27] MEDS ORDERED: FENTANYL CITRATE/PF 50MCG/ML 2ML VIAL ONE (08:07)
[2020-04-27 08:14] LABS: CHLORIDE 107 mEq/L (98-107)
[2020-04-27 08:17] LABS: INR 1.1; PROTHROMBIN TIME 11.3 sec (9.6-11.0)
[2020-04-27] MEDS ORDERED: FENTANYL CITRATE/PF 50MCG/ML 2ML VIAL IV ONE (09:55)
== END 2020-04-27 11:06 | disposition home or self-care (01) ==
LOC: ER 06:56
DX: T82.41XA Breakdown (mechanical) of vascular dialysis catheter, initial encounter (principal); Y84.1 Kidney dialysis as the cause of abnormal reaction of the patient, or of later complication, without mention of misadventure at the time of the procedure; Y92.9 Unspecified place or not applicable; N18.6 End stage renal disease; Z99.2 Dependence on renal dialysis; Z20.822 Contact with and (suspected) exposure to COVID-19
CPT/HCPCS: 36415; 36581; 77001; 80053; 85025; 85610; 87426; 93005; 96365; 96375; 99285; C1750; C1769; J0690; J1644; J3010; J3490; 99152; 99153; G0500

== ENCOUNTER 2020-06-22 06:54 | Emergency (ER) | payer MEDICARE, MEDICAID ==
[2020-06-22] VITALS (9 sets, daily range): BP systolic 114–129; BP diastolic 64–76
[~2020-06-22] VITALS: Ht 175.3 cm; Wt 82.6 kg
[2020-06-22 08:22] LABS: BASOPHILS % 1.1 % (0.0-2.0); EOSINOPHILS % 7.3 % (0.0-5.0); LYMPHOCYTES % 18.5 % (20.0-50.0); MEAN CORPUSCULAR HEMOGLOBIN 30.9 pg (28.0-32.0); MEAN CORPUSCULAR VOLUME 95.3 fL (80.0-94.0); MEAN PLATELET VOLUME 8.8 fl (7.4-10.4); MONOCYTES % 11.9 % (2.0-8.0); NEUTROPHILS % 61.2 % (40.0-76.0); PLATELET 201 x1000/uL (130-400); RED BLOOD CELL COUNT 3.56 mill/uL (4.7-6.1); RED CELL DISTRIBUTION WIDTH 14.5 % (11.6-14.6)
[2020-06-22 08:34] LABS: PARTIAL THROMBOPLASTIN TIME 24.4 sec (23.4-31.0)
[2020-06-22] MEDS ORDERED: LIDOCAINE HCL 1% 20ML VIAL (Pyxis) INJ ONE (08:54)
[2020-06-22] MEDS ORDERED: HEPARIN 1000 UNITS/ML 10ML ONE (08:54)
[2020-06-22] MEDS ORDERED: CEFAZOLIN 1000MG PREMIX 50 ML IV ONE ×2 (08:55→09:00)
[2020-06-22] MEDS ORDERED: FENTANYL CITRATE/PF 50MCG/ML 2ML VIAL ONE (09:47)
[2020-06-22] MEDS ORDERED: FENTANYL CITRATE/PF 50MCG/ML 2ML VIAL IV ONE (10:15)
== END 2020-06-22 11:01 | disposition home or self-care (01) ==
LOC: ER 06:54
DX: T82.41XA Breakdown (mechanical) of vascular dialysis catheter, initial encounter (principal); Y84.1 Kidney dialysis as the cause of abnormal reaction of the patient, or of later complication, without mention of misadventure at the time of the procedure; Y92.9 Unspecified place or not applicable; I10 Essential (primary) hypertension; N18.6 End stage renal disease; Z99.2 Dependence on renal dialysis; Z94.0 Kidney transplant status; Z20.822 Contact with and (suspected) exposure to COVID-19
CPT/HCPCS: 36415; 36558; 77001; 80048; 85025; 85610; 85730; 87426; 96365; 96375; 99284; C1750; C1769; J0690; J1644; J3010; J3490; 99152; 99153; G0500

== ENCOUNTER 2020-07-13 06:35 | Emergency (ER) | payer MEDICARE, MEDICAID ==
[2020-07-13] VITALS (17 sets, daily range): BP systolic 129–171; BP diastolic 79–96
[~2020-07-13] VITALS: Ht 182.9 cm; Wt 86.3 kg
[2020-07-13] MEDS ORDERED: CEFAZOLIN 1000MG PREMIX 50 ML IV ONE ×2 (07:30→08:38)
[2020-07-13 07:58] LABS: BASOPHILS % 0.6 % (0.0-2.0); EOSINOPHILS % 5.9 % (0.0-5.0); HEMATOCRIT. 34.5 % (42.0-52.0); LYMPHOCYTES % 17.4 % (20.0-50.0); MEAN CORPUSCULAR HEMOGLOBIN 30.7 pg (28.0-32.0); MEAN CORPUSCULAR VOLUME 95.8 fL (80.0-94.0); MEAN PLATELET VOLUME 8.3 fl (7.4-10.4); MONOCYTES % 10.8 % (2.0-8.0); NEUTROPHILS % 65.3 % (40.0-76.0); PLATELET 189 x1000/uL (130-400); RED CELL DISTRIBUTION WIDTH 14.9 % (11.6-14.6)
[2020-07-13 08:03] LABS: CHLORIDE 105 mEq/L (98-107)
[2020-07-13 08:07] LABS: INR 1.1; PROTHROMBIN TIME 11.3 sec (9.6-11.0)
[2020-07-13] MEDS ORDERED: FENTANYL CITRATE/PF 50MCG/ML 2ML VIAL ONE (08:39)
[2020-07-13] MEDS ORDERED: HEPARIN 1000 UNITS/ML 10ML ONE ×2 (10:36→11:11)
[2020-07-13] MEDS ORDERED: LIDOCAINE HCL 1% 20ML VIAL (Pyxis) INJ ONE (10:36)
[2020-07-13] MEDS ORDERED: FENTANYL CITRATE/PF 50MCG/ML 2ML VIAL IV ONE (11:15)
== END 2020-07-13 11:44 | disposition home or self-care (01) ==
LOC: ER 06:35
DX: T82.41XA Breakdown (mechanical) of vascular dialysis catheter, initial encounter (principal); Y84.1 Kidney dialysis as the cause of abnormal reaction of the patient, or of later complication, without mention of misadventure at the time of the procedure; Y92.9 Unspecified place or not applicable; N18.6 End stage renal disease; Z94.0 Kidney transplant status; Z99.2 Dependence on renal dialysis; Z20.822 Contact with and (suspected) exposure to COVID-19; Z86.718 Personal history of other venous thrombosis and embolism; Z98.890 Other specified postprocedural states
CPT/HCPCS: 36415; 36581; 51702; 77001; 80053; 85025; 85610; 87426; 93005; 96365; 96375; 99284; C1750; C1769; J0690; J1644; J3010; J3490; 99152; 99153; G0500

== ENCOUNTER 2020-10-03 06:16 | Emergency (ER) | payer MEDICARE, MEDICAID ==
[~2020-10-03] VITALS: Ht 175.3 cm; Wt 83.0 kg
[2020-10-03] VITALS (14 sets, daily range): BP systolic 122–147; BP diastolic 67–86
[2020-10-03 09:27] LABS: BASOPHILS % 0.9 % (0.0-2.0); EOSINOPHILS % 8.5 % (0.0-5.0); HEMATOCRIT. 36.4 % (42.0-52.0); HEMOGLOBIN. 11.6 g/dL (14.0-18.0); LYMPHOCYTES % 15.3 % (20.0-50.0); MEAN CORPUSCULAR HEMOGLOBIN 30.7 pg (28.0-32.0); MEAN CORPUSCULAR VOLUME 96.4 fL (80.0-94.0); MEAN PLATELET VOLUME 8.9 fl (7.4-10.4); MONOCYTES % 9.1 % (2.0-8.0); NEUTROPHILS % 66.2 % (40.0-76.0); PLATELET 220 x1000/uL (130-400); RED BLOOD CELL COUNT 3.77 mill/uL (4.7-6.1)
[2020-10-03 09:38] LABS: INR 1.1; PARTIAL THROMBOPLASTIN TIME 30.7 sec (23.4-31.0); PROTHROMBIN TIME 11.4 sec (9.6-11.0)
[2020-10-03] MEDS ORDERED: HEPARIN 1000 UNITS/ML 10ML ONE (09:39)
[2020-10-03] MEDS ORDERED: LIDOCAINE HCL 1% 20ML VIAL (Pyxis) INJ ONE (09:39)
[2020-10-03] MEDS ORDERED: CEFAZOLIN 1000MG PREMIX 50 ML IV ONE ×2 (09:40→10:30)
[2020-10-03] MEDS ORDERED: FENTANYL CITRATE/PF 50MCG/ML 2ML VIAL ONE (09:40)
[2020-10-03] MEDS ORDERED: FENTANYL CITRATE/PF 50MCG/ML 2ML VIAL IV ONE (10:30)
== END 2020-10-03 11:19 | disposition home or self-care (01) ==
LOC: ER 06:16
DX: N18.6 End stage renal disease (principal); Z99.2 Dependence on renal dialysis; Z90.49 Acquired absence of other specified parts of digestive tract; Z98.890 Other specified postprocedural states; Z79.899 Other long term (current) drug therapy; Z20.822 Contact with and (suspected) exposure to COVID-19
CPT/HCPCS: 36415; 36581; 77001; 80048; 85025; 85610; 85730; 87426; 96365; 96375; 99284; C1750; C1769; J0690; J1644; J3010; J3490; 99152; 99153; G0500

== ENCOUNTER 2020-12-14 06:38 | Emergency (ER) | payer MEDICARE, MEDICAID ==
[2020-12-14] VITALS (13 sets, daily range): BP systolic 108–129; BP diastolic 63–73
[~2020-12-14] VITALS: Ht 175.3 cm; Wt 85.0 kg
[2020-12-14 08:30] LABS: BASOPHILS % 0.6 % (0.0-2.0); EOSINOPHILS % 5.9 % (0.0-5.0); HEMATOCRIT. 34.6 % (42.0-52.0); HEMOGLOBIN. 11.1 g/dL (14.0-18.0); LYMPHOCYTES % 11.6 % (20.0-50.0); MEAN CORPUSCULAR HEMOGLOBIN 30.2 pg (28.0-32.0); MEAN CORPUSCULAR VOLUME 93.9 fL (80.0-94.0); MEAN PLATELET VOLUME 8.6 fl (7.4-10.4); MONOCYTES % 9.1 % (2.0-8.0); NEUTROPHILS % 72.8 % (40.0-76.0); PLATELET 206 x1000/uL (130-400); RED BLOOD CELL COUNT 3.68 mill/uL (4.7-6.1); RED CELL DISTRIBUTION WIDTH 14.6 % (11.6-14.6)
[2020-12-14 08:41] LABS: INR 1.1; PARTIAL THROMBOPLASTIN TIME 29.6 sec (23.4-31.0); PROTHROMBIN TIME 11.3 sec (9.6-11.0)
[2020-12-14] MEDS ORDERED: CEFAZOLIN 1000MG PREMIX 50 ML IV NR (09:15)
[2020-12-14] MEDS ORDERED: CEFAZOLIN 1000MG PREMIX 50 ML IV ONE (09:28)
[2020-12-14] MEDS ORDERED: FENTANYL CITRATE/PF 50MCG/ML 2ML VIAL ONE (09:29)
[2020-12-14] MEDS ORDERED: LIDOCAINE HCL 1% 30ML VIAL (10MG/ML) ONE (09:29)
[2020-12-14] MEDS ORDERED: FENTANYL CITRATE/PF 50MCG/ML 2ML VIAL IV ONE (10:15)
== END 2020-12-14 11:38 | disposition home or self-care (01) ==
LOC: ER 06:38
DX: Z49.01 Encounter for fitting and adjustment of extracorporeal dialysis catheter (principal); I12.0 Hypertensive chronic kidney disease with stage 5 chronic kidney disease or end stage renal disease; N18.6 End stage renal disease; Z99.2 Dependence on renal dialysis; N17.9 Acute kidney failure, unspecified; Z94.0 Kidney transplant status; Z20.822 Contact with and (suspected) exposure to COVID-19; Z98.890 Other specified postprocedural states
CPT/HCPCS: 36415; 36581; 77001; 85025; 85610; 85730; 87426; 96365; 96375; 99285; C1750; C1769; J0690; J1642; J3010; J3490; 99152; 99153; G0500

== ENCOUNTER 2021-08-07 05:59 | Emergency (ER) | payer MEDICARE, MEDICAID ==
[2021-08-07] VITALS (11 sets, daily range): BP systolic 150–198; BP diastolic 86–100
[~2021-08-07] VITALS: Ht 175.3 cm; Wt 84.0 kg
[2021-08-07 07:18] LABS: EOSINOPHILS % 5.9 % (0.0-5.0); HEMATOCRIT. 36.3 % (42.0-52.0); HEMOGLOBIN. 11.5 g/dL (14.0-18.0); LYMPHOCYTES % 15.9 % (20.0-50.0); MEAN CORPUSCULAR HEMOGLOBIN 30.4 pg (28.0-32.0); MEAN CORPUSCULAR VOLUME 96.3 fL (80.0-94.0); MEAN PLATELET VOLUME 9.4 fl (7.4-10.4); MONOCYTES % 9.3 % (2.0-8.0); NEUTROPHILS % 67.9 % (40.0-76.0); PLATELET 200 x1000/uL (130-400); RED BLOOD CELL COUNT 3.77 mill/uL (4.7-6.1); RED CELL DISTRIBUTION WIDTH 14.7 % (11.6-14.6)
[2021-08-07 07:25] LABS: CHLORIDE 106 mEq/L (98-107)
[2021-08-07] MEDS ORDERED: CEFAZOLIN 1000MG PREMIX 50 ML IV NR (07:30)
[2021-08-07] MEDS ORDERED: LIDOCAINE HCL 1% 20ML VIAL (Pyxis) INJ ONE (08:09)
[2021-08-07] MEDS ORDERED: HEPARIN 1000 UNITS/ML 10ML ONE (08:09)
[2021-08-07] MEDS ORDERED: FENTANYL CITRATE/PF 50MCG/ML 2ML VIAL ONE (08:11)
[2021-08-07 08:15] LABS: PROTHROMBIN TIME 10.9 sec (9.6-11.0)
[2021-08-07] MEDS ORDERED: FENTANYL CITRATE/PF 50MCG/ML 2ML VIAL IV ONE (08:45)
== END 2021-08-07 09:40 | disposition home or self-care (01) ==
LOC: ER 05:59
DX: Z49.01 Encounter for fitting and adjustment of extracorporeal dialysis catheter (principal); Z20.822 Contact with and (suspected) exposure to COVID-19
CPT/HCPCS: 36415; 36581; 77001; 80053; 85025; 85610; 87426; 96365; 96375; 99284; C1750; C1769; C9803; J0690; J1644; J3010; J3490; 99152; 99153; G0500

== ENCOUNTER 2021-09-07 06:51 | Emergency (ER) | payer MEDICARE, MEDICAID ==
[2021-09-07] VITALS (10 sets, daily range): BP systolic 132–171; BP diastolic 77–96
[~2021-09-07] VITALS: Ht 167.6 cm; Wt 80.8 kg
[2021-09-07] MEDS ORDERED: CEFAZOLIN 1000MG PREMIX 50 ML IV NR (07:45)
[2021-09-07 08:17] LABS: BASOPHILS % 1.3 % (0.0-2.0); EOSINOPHILS % 5.6 % (0.0-5.0); HEMATOCRIT. 37.7 % (42.0-52.0); HEMOGLOBIN. 11.9 g/dL (14.0-18.0); LYMPHOCYTES % 16.8 % (20.0-50.0); MEAN CORPUSCULAR HEMOGLOBIN 30.4 pg (28.0-32.0); MEAN CORPUSCULAR VOLUME 96.1 fL (80.0-94.0); MEAN PLATELET VOLUME 9.8 fl (7.4-10.4); MONOCYTES % 7.4 % (2.0-8.0); NEUTROPHILS % 68.9 % (40.0-76.0); PLATELET 115 x1000/uL (130-400); RED BLOOD CELL COUNT 3.92 mill/uL (4.7-6.1); RED CELL DISTRIBUTION WIDTH 15.6 % (11.6-14.6)
[2021-09-07 08:26] LABS: CHLORIDE 103 mEq/L (98-107); PROTHROMBIN TIME 11.2 sec (9.6-11.0)
[2021-09-07] MEDS ORDERED: LIDOCAINE HCL/PF 1% 10 MG/ML 5ML VIAL ONE (08:29)
[2021-09-07] MEDS ORDERED: FENTANYL CITRATE/PF 50MCG/ML 2ML VIAL ONE (08:39)
[2021-09-07] MEDS ORDERED: HEPARIN 1000 UNITS/ML 10ML ONE (09:19)
[2021-09-07] MEDS ORDERED: FENTANYL CITRATE/PF 50MCG/ML 2ML VIAL IV ONE (09:30)
== END 2021-09-07 10:40 | disposition home or self-care (01) ==
LOC: ER 06:51
DX: I12.0 Hypertensive chronic kidney disease with stage 5 chronic kidney disease or end stage renal disease (principal); Z20.822 Contact with and (suspected) exposure to COVID-19
CPT/HCPCS: 36415; 36581; 77001; 80053; 85025; 85610; 87426; 96365; 96375; 99284; C1750; C1769; C9803; J0690; J1644; J3010; J3490; 99152; 99153; G0500

== ENCOUNTER 2021-10-16 05:46 | Emergency (ER) | payer MEDICARE, MEDICAID ==
[~2021-10-16] VITALS: Ht 175.3 cm; Wt 78.2 kg
[2021-10-16] VITALS (10 sets, daily range): BP systolic 130–185; BP diastolic 83–92
[2021-10-16 06:37] LABS: BASOPHILS % 0.9 % (0.0-2.0); EOSINOPHILS % 5.6 % (0.0-5.0); HEMATOCRIT. 38.3 % (42.0-52.0); HEMOGLOBIN. 12.5 g/dL (14.0-18.0); LYMPHOCYTES % 13.8 % (20.0-50.0); MEAN CORPUSCULAR VOLUME 92.2 fL (80.0-94.0); MONOCYTES % 8.1 % (2.0-8.0); NEUTROPHILS % 71.6 % (40.0-76.0); PLATELET 212 x1000/uL (130-400); RED BLOOD CELL COUNT 4.16 mill/uL (4.7-6.1); RED CELL DISTRIBUTION WIDTH 15.4 % (11.6-14.6)
[2021-10-16 06:42] LABS: CHLORIDE 100 mEq/L (98-107)
[2021-10-16 06:47] LABS: PROTHROMBIN TIME 11.2 sec (9.6-11.0)
[2021-10-16] MEDS ORDERED: LIDOCAINE HCL 1% 50ML VIAL (10MG/ML) ONE (08:51)
[2021-10-16] MEDS ORDERED: HEPARIN 1000 UNITS/ML 10ML ONE (08:51)
[2021-10-16] MEDS ORDERED: FENTANYL CITRATE/PF 50MCG/ML 2ML VIAL ONE (09:02)
[2021-10-16] MEDS ORDERED: CEFAZOLIN 1000MG PREMIX 50 ML IV ONE ×2 (09:02→09:30)
[2021-10-16] MEDS ORDERED: FENTANYL CITRATE/PF 50MCG/ML 2ML VIAL IV ONE (09:30)
== END 2021-10-16 10:51 | disposition home or self-care (01) ==
LOC: ER 05:46
DX: Z49.01 Encounter for fitting and adjustment of extracorporeal dialysis catheter (principal); Z98.890 Other specified postprocedural states; Z90.49 Acquired absence of other specified parts of digestive tract; Z20.822 Contact with and (suspected) exposure to COVID-19
CPT/HCPCS: 36415; 36558; 77001; 80053; 85025; 85610; 87426; 96365; 96375; 99284; C1750; C1769; C9803; J0690; J1644; J3010; J3490; 99152; 99153; G0500

== ENCOUNTER 2021-11-21 06:26 | Emergency (ER) | payer MEDICARE, MEDICAID ==
[2021-11-21] VITALS (9 sets, daily range): BP systolic 156–185; BP diastolic 91–103
[~2021-11-21] VITALS: Ht 175.3 cm; Wt 81.0 kg
[2021-11-21 07:26] LABS: BASOPHILS % 0.6 % (0.0-2.0); EOSINOPHILS % 5.9 % (0.0-5.0); HEMATOCRIT. 33.8 % (42.0-52.0); HEMOGLOBIN. 11.3 g/dL (14.0-18.0); LYMPHOCYTES % 12.7 % (20.0-50.0); MEAN CORPUSCULAR HEMOGLOBIN 30.7 pg (28.0-32.0); MEAN CORPUSCULAR VOLUME 92.2 fL (80.0-94.0); MEAN PLATELET VOLUME 9.4 fl (7.4-10.4); MONOCYTES % 8.2 % (2.0-8.0); NEUTROPHILS % 72.6 % (40.0-76.0); PLATELET 200 x1000/uL (130-400); RED BLOOD CELL COUNT 3.67 mill/uL (4.7-6.1); RED CELL DISTRIBUTION WIDTH 15.6 % (11.6-14.6)
[2021-11-21 07:34] LABS: PROTHROMBIN TIME 11.1 sec (9.6-11.0)
[2021-11-21 08:26] LABS: CHLORIDE 101 mEq/L (98-107)
[2021-11-21] MEDS ORDERED: CEFAZOLIN 1000MG PREMIX 50 ML IV ONE ×2 (09:21→09:30)
[2021-11-21] MEDS ORDERED: FENTANYL CITRATE/PF 50MCG/ML 2ML VIAL ONE (09:21)
== END 2021-11-21 10:43 | disposition home or self-care (01) ==
LOC: ER 06:26
DX: T82.41XA Breakdown (mechanical) of vascular dialysis catheter, initial encounter (principal); Y84.1 Kidney dialysis as the cause of abnormal reaction of the patient, or of later complication, without mention of misadventure at the time of the procedure; Y92.9 Unspecified place or not applicable; N18.6 End stage renal disease; Z99.2 Dependence on renal dialysis; Z98.890 Other specified postprocedural states; Z20.822 Contact with and (suspected) exposure to COVID-19
CPT/HCPCS: 36415; 36558; 77001; 80053; 85025; 85610; 87426; 96365; 99284; C1750; C1769; C9803; J0690; J3010

== ENCOUNTER → 2022-02-26 | Outpatient (CLI) | payer MEDICARE, MEDICAID ==
[~2022-02-26] MED LIST changes: +IOHEXOL-350 100 ML BOTTLE ONE
== END | disposition home or self-care (01) ==
LOC: CT 09:07
PROVIDERS: ATTEND Internal Medicine
DX: K76.0 Fatty (change of) liver, not elsewhere classified (principal); K57.90 Diverticulosis of intestine, part unspecified, without perforation or abscess without bleeding; I82.493 Acute embolism and thrombosis of other specified deep vein of lower extremity, bilateral; M79.89 Other specified soft tissue disorders
CPT/HCPCS: 74177; 93970; Q9967

== ENCOUNTER 2022-04-11 06:42 | Emergency (ER) | payer MEDICARE, MEDICAID ==
[2022-04-11] VITALS (9 sets, daily range): BP systolic 152–164; BP diastolic 90–103
[~2022-04-11] VITALS: Ht 185.4 cm; Wt 78.5 kg
[~2022-04-11 06:42] MED LIST changes: -IOHEXOL-350 100 ML BOTTLE ONE
[2022-04-11] MEDS ORDERED: CEFAZOLIN 1000MG PREMIX 50 ML IV NR (08:45)
[2022-04-11 08:59] LABS: BASOPHILS % 1.9 % (0.0-2.0); EOSINOPHILS % 6.5 % (0.0-5.0); HEMATOCRIT. 37.9 % (42.0-52.0); HEMOGLOBIN. 12.6 g/dL (14.0-18.0); LYMPHOCYTES % 17.6 % (20.0-50.0); MEAN CORPUSCULAR HEMOGLOBIN 30.5 pg (28.0-32.0); MEAN CORPUSCULAR VOLUME 91.9 fL (80.0-94.0); MEAN PLATELET VOLUME 9.8 fl (7.4-10.4); MONOCYTES % 9.6 % (2.0-8.0); NEUTROPHILS % 64.4 % (40.0-76.0); PLATELET 239 x1000/uL (130-400); RED BLOOD CELL COUNT 4.12 mill/uL (4.7-6.1); RED CELL DISTRIBUTION WIDTH 16.3 % (11.6-14.6)
[2022-04-11 09:53] LABS: CHLORIDE 104 mEq/L (98-107)
[2022-04-11 10:25] LABS: PARTIAL THROMBOPLASTIN TIME 27.1 sec (23.4-31.0); PROTHROMBIN TIME 11.1 sec (9.6-11.0)
[2022-04-11] MEDS ORDERED: FENTANYL CITRATE/PF 50MCG/ML 2ML VIAL ONE (10:28)
[2022-04-11] MEDS: FENTANYL CITRATE/PF 50MCG/ML 2ML VIAL IV NR (10:50)
== END 2022-04-11 12:00 | disposition home or self-care (01) ==
LOC: ER 06:42
DX: T82.41XA Breakdown (mechanical) of vascular dialysis catheter, initial encounter (principal); R79.89 Other specified abnormal findings of blood chemistry; Y84.1 Kidney dialysis as the cause of abnormal reaction of the patient, or of later complication, without mention of misadventure at the time of the procedure; Y92.9 Unspecified place or not applicable; N18.6 End stage renal disease; Z99.2 Dependence on renal dialysis; Z20.822 Contact with and (suspected) exposure to COVID-19
CPT/HCPCS: 36415; 36558; 51701; 77001; 80053; 85025; 85610; 85730; 87426; 96365; 96375; 99284; C1750; C1769; C9803; J0690; J1642; J3010

== ENCOUNTER 2022-04-17 10:54 | Emergency (ER) | payer MEDICARE, MEDICAID ==
[~2022-04-17] VITALS: Ht 182.9 cm; Wt 78.0 kg
[2022-04-17 11:03] VITALS: BP 130/91
[2022-04-17] MEDS ORDERED: LIDOCAINE HCL 1% 10 MG/ML 10ML VIAL ONE (11:14)
[2022-04-17] MEDS ORDERED: HEPARIN 1000 UNITS/ML 10ML ONE (12:11)
== END 2022-04-17 12:55 | disposition home or self-care (01) ==
LOC: ER 10:54
DX: Z49.01 Encounter for fitting and adjustment of extracorporeal dialysis catheter (principal); N18.6 End stage renal disease; T82.41XA Breakdown (mechanical) of vascular dialysis catheter, initial encounter; Y84.1 Kidney dialysis as the cause of abnormal reaction of the patient, or of later complication, without mention of misadventure at the time of the procedure; Y92.89 Other specified places as the place of occurrence of the external cause; Z94.0 Kidney transplant status; Z98.890 Other specified postprocedural states
CPT/HCPCS: 12001; 99281; J1644; J3490

== ENCOUNTER 2022-04-29 06:13 | Emergency (ER) | payer MEDICARE, MEDICAID ==
[2022-04-29] VITALS (11 sets, daily range): BP systolic 152–178; BP diastolic 84–103
[~2022-04-29] VITALS: Ht 175.3 cm; Wt 77.0 kg
[2022-04-29 09:29] LABS: PARTIAL THROMBOPLASTIN TIME 26.1 sec (23.4-31.0); PROTHROMBIN TIME 10.7 sec (9.6-11.0)
[2022-04-29 09:30] LABS: BASOPHILS % 1.1 % (0.0-2.0); EOSINOPHILS % 7.2 % (0.0-5.0); HEMATOCRIT. 38.5 % (42.0-52.0); HEMOGLOBIN. 11.6 g/dL (14.0-18.0); LYMPHOCYTES % 13.5 % (20.0-50.0); MEAN CORPUSCULAR HEMOGLOBIN 29.1 pg (28.0-32.0); MEAN CORPUSCULAR VOLUME 96.5 fL (80.0-94.0); MONOCYTES % 8.5 % (2.0-8.0); NEUTROPHILS % 69.7 % (40.0-76.0); RED BLOOD CELL COUNT 3.98 mill/uL (4.7-6.1); RED CELL DISTRIBUTION WIDTH 17.3 % (11.6-14.6)
[2022-04-29] MEDS ORDERED: LIDOCAINE HCL 1% 10 MG/ML 10ML VIAL ONE ×2 (09:33→11:37)
[2022-04-29] MEDS ORDERED: CEFAZOLIN 1000MG PREMIX 50 ML IV ONE (09:33)
[2022-04-29] MEDS ORDERED: CEFAZOLIN 1000MG PREMIX 50 ML IV NR (09:33)
[2022-04-29 10:19] LABS: PLATELET 140 x1000/uL (130-400); PLATELET ESTIMATE NORMAL
[2022-04-29 10:20] LABS: MEAN PLATELET VOLUME 10.2 fl (7.4-10.4)
[2022-04-29 10:27] LABS: CHLORIDE 106 mEq/L (98-107)
[2022-04-29] MEDS ORDERED: FENTANYL CITRATE/PF 50MCG/ML 2ML VIAL IV NR (11:16)
[2022-04-29] MEDS ORDERED: FENTANYL CITRATE/PF 50MCG/ML 2ML VIAL ONE (11:16)
== END 2022-04-29 12:31 | disposition home or self-care (01) ==
LOC: ER 06:13
DX: Z45.2 Encounter for adjustment and management of vascular access device (principal); N18.6 End stage renal disease; Z99.2 Dependence on renal dialysis; Z90.49 Acquired absence of other specified parts of digestive tract; Z91.048 Other nonmedicinal substance allergy status
CPT/HCPCS: 36415; 36558; 77001; 80053; 85025; 85610; 85730; 87426; 96365; 96375; 99284; C1750; C1769; C9803; J0690; J1642; J3010; J3490; 99152; 99153; G0500

== ENCOUNTER 2022-05-21 04:27 | Emergency (ER) | payer MEDICARE, MEDICAID ==
[~2022-05-21] VITALS: Ht 185.4 cm; Wt 79.3 kg
[2022-05-21 04:40] VITALS: BP 123/72
[2022-05-21 06:25] LABS: BASOPHILS % 0.4 % (0.0-2.0); EOSINOPHILS % 4.7 % (0.0-5.0); HEMATOCRIT. 33.1 % (42.0-52.0); HEMOGLOBIN. 10.7 g/dL (14.0-18.0); LYMPHOCYTES % 14.4 % (20.0-50.0); MEAN CORPUSCULAR HEMOGLOBIN 30.6 pg (28.0-32.0); MEAN CORPUSCULAR VOLUME 94.3 fL (80.0-94.0); MEAN PLATELET VOLUME 8.9 fl (7.4-10.4); MONOCYTES % 9.9 % (2.0-8.0); NEUTROPHILS % 70.6 % (40.0-76.0); PLATELET 158 x1000/uL (130-400); RED BLOOD CELL COUNT 3.51 mill/uL (4.7-6.1); RED CELL DISTRIBUTION WIDTH 17.8 % (11.6-14.6)
[2022-05-21 06:29] LABS: PROTHROMBIN TIME 10.9 sec (9.6-11.0)
[2022-05-21 06:42] LABS: CHLORIDE 106 mEq/L (98-107)
[2022-05-21] MEDS ORDERED: CEFAZOLIN 1000MG PREMIX 50 ML IV NR (07:00)
[2022-05-21] MEDS ORDERED: LIDOCAINE HCL 1% 10 MG/ML 10ML VIAL ONE (07:18)
[2022-05-21] MEDS ORDERED: IOHEXOL-300 50 ML BOTTLE IV ONE (08:43)
== END 2022-05-21 09:15 | disposition home or self-care (01) ==
LOC: ER 04:27
DX: T82.41XA Breakdown (mechanical) of vascular dialysis catheter, initial encounter (principal); Z20.822 Contact with and (suspected) exposure to COVID-19
CPT/HCPCS: 36415; 75827; 80053; 85025; 85610; 87426; 99283; C9803; J0690; J3490; Q9967

== ENCOUNTER 2022-07-04 05:39 | Emergency (ER) | payer MEDICARE, MEDICAID ==
[2022-07-04] VITALS (11 sets, daily range): BP systolic 89–130; BP diastolic 57–78
[~2022-07-04] VITALS: Ht 182.9 cm; Wt 70.7 kg
[2022-07-04 06:23] LABS: BASOPHILS % 0.9 % (0.0-2.0); EOSINOPHILS % 6.9 % (0.0-5.0); HEMATOCRIT. 31.2 % (42.0-52.0); HEMOGLOBIN. 9.8 g/dL (14.0-18.0); LYMPHOCYTES % 10.4 % (20.0-50.0); MEAN CORPUSCULAR HEMOGLOBIN 29.3 pg (28.0-32.0); MEAN CORPUSCULAR VOLUME 92.8 fL (80.0-94.0); MEAN PLATELET VOLUME 9.4 fl (7.4-10.4); MONOCYTES % 8.5 % (2.0-8.0); NEUTROPHILS % 73.3 % (40.0-76.0); PLATELET 178 x1000/uL (130-400); RED BLOOD CELL COUNT 3.36 mill/uL (4.7-6.1); RED CELL DISTRIBUTION WIDTH 15.9 % (11.6-14.6)
[2022-07-04 06:33] LABS: PROTHROMBIN TIME 11.1 sec (9.6-11.0)
[2022-07-04 06:36] LABS: CHLORIDE 106 mEq/L (98-107)
[2022-07-04] MEDS ORDERED: CEFAZOLIN 1000MG PREMIX 50 ML IV ONE (07:00)
[2022-07-04] MEDS ORDERED: HEPARIN 1000 UNITS/ML 10ML ONE (07:13)
[2022-07-04] MEDS ORDERED: LIDOCAINE HCL 1% 10 MG/ML 10ML VIAL ONE (07:13)
[2022-07-04] MEDS ORDERED: FENTANYL CITRATE/PF 50MCG/ML 2ML VIAL ONE (07:13)
[2022-07-04] MEDS ORDERED: IOHEXOL-300 50 ML BOTTLE IV ONE (07:19)
[2022-07-04] MEDS ORDERED: FENTANYL CITRATE/PF 50MCG/ML 2ML VIAL IV ONE (08:00)
== END 2022-07-04 09:12 | disposition home or self-care (01) ==
LOC: ER 05:39
DX: N18.6 End stage renal disease (principal); Z79.899 Other long term (current) drug therapy; Z90.49 Acquired absence of other specified parts of digestive tract; Z99.2 Dependence on renal dialysis; Z20.822 Contact with and (suspected) exposure to COVID-19
CPT/HCPCS: 36415; 36581; 77001; 80053; 85025; 85610; 87426; 96365; 96375; 99284; C1750; C1769; C9803; J0690; J1644; J3010; J3490; Q9967; 99152; 99153; G0500

== ENCOUNTER 2022-07-30 06:01 | Emergency (ER) | payer MEDICARE, MEDICAID ==
[~2022-07-30] VITALS: Ht 175.3 cm; Wt 80.8 kg
[2022-07-30 06:15] VITALS: BP 109/72
== END 2022-07-30 12:15 | disposition left against medical advice (07) ==
LOC: ER 06:01
DX: Z53.21 Procedure and treatment not carried out due to patient leaving prior to being seen by health care provider (principal)
CPT/HCPCS: 99281

== ENCOUNTER 2022-08-01 05:24 | Emergency (ER) | payer MEDICARE, MEDICAID ==
[~2022-08-01] VITALS: Ht 175.3 cm; Wt 81.0 kg
[2022-08-01] VITALS (11 sets, daily range): BP systolic 107–134; BP diastolic 73–88; PULSE 71–80; RESP 14; TEMP 97.7; O2SAT 96
[2022-08-01 06:09] LABS: BASOPHILS % 1.6 % (0.0-2.0); EOSINOPHILS % 6.2 % (0.0-5.0); HEMATOCRIT. 34.5 % (42.0-52.0); HEMOGLOBIN. 10.8 g/dL (14.0-18.0); LYMPHOCYTES % 16.6 % (20.0-50.0); MEAN CORPUSCULAR HEMOGLOBIN 29.1 pg (28.0-32.0); MEAN CORPUSCULAR VOLUME 92.5 fL (80.0-94.0); MEAN PLATELET VOLUME 8.6 fl (7.4-10.4); MONOCYTES % 9.5 % (2.0-8.0); NEUTROPHILS % 66.1 % (40.0-76.0); PLATELET 218 x1000/uL (130-400); RED BLOOD CELL COUNT 3.73 mill/uL (4.7-6.1); RED CELL DISTRIBUTION WIDTH 17.1 % (11.6-14.6)
[2022-08-01 06:16] LABS: CHLORIDE 106 mEq/L (98-107)
[2022-08-01] MEDS ORDERED: CEFAZOLIN 1000MG PREMIX 50 ML IV NR (07:00)
[2022-08-01] MEDS ORDERED: HEPARIN 1000 UNITS/ML 10ML ONE (08:37)
[2022-08-01] MEDS ORDERED: LIDOCAINE HCL 1% 10 MG/ML 10ML VIAL ONE (08:37)
[2022-08-01] MEDS ORDERED: FENTANYL CITRATE/PF 50MCG/ML 2ML VIAL ONE (08:40)
[2022-08-01] MEDS ORDERED: FENTANYL CITRATE/PF 50MCG/ML 2ML VIAL IV NR (09:15)
== END 2022-08-01 10:35 | disposition home or self-care (01) ==
LOC: ER 05:24
DX: T82.49XA Other complication of vascular dialysis catheter, initial encounter (principal); I49.9 Cardiac arrhythmia, unspecified; N18.6 End stage renal disease; Z99.2 Dependence on renal dialysis; Y92.89 Other specified places as the place of occurrence of the external cause
CPT/HCPCS: 36415; 36558; 71045; 77001; 80053; 84484; 85025; 93005; 96365; 96375; 99285; C1750; C1769; J0690; J1642; J3010; J3490; J1644

== ENCOUNTER → 2023-01-16 | Outpatient (CLI) | payer MEDICARE, MEDICAID ==
[~2023-01-16] MED LIST changes: +LIDOCAINE HCL 1% 10 MG/ML 10ML VIAL ONE
== END | disposition home or self-care (01) ==
LOC: ANGIO 08:48
DX: N18.6 End stage renal disease (principal); Z79.899 Other long term (current) drug therapy; Z88.8 Allergy status to other drugs, medicaments and biological substances
CPT/HCPCS: 36575; J3490; 12001

== ENCOUNTER 2023-02-14 04:30 | Emergency (ER) | payer MEDICARE, MEDICAID ==
[2023-02-14] VITALS (14 sets, daily range): BP systolic 108–130; BP diastolic 63–98; PULSE 74–85; RESP 14–20; TEMP 98.6; O2SAT 94
[~2023-02-14] VITALS: Ht 175.3 cm; Wt 81.0 kg
[~2023-02-14 04:30] MED LIST changes: -LIDOCAINE HCL 1% 10 MG/ML 10ML VIAL ONE
[2023-02-14] MEDS ORDERED: CEFAZOLIN 1000MG PREMIX 50 ML IV NR (07:15)
[2023-02-14 07:21] LABS: EOSINOPHILS % 4.4 % (0.0-5.0); HEMATOCRIT. 25.7 % (42.0-52.0); HEMOGLOBIN. 7.8 g/dL (14.0-18.0); MEAN CORPUSCULAR HEMOGLOBIN 28.2 pg (28.0-32.0); MEAN CORPUSCULAR HGB CONC 30.6 g/dL (31.0-37.0); MEAN CORPUSCULAR VOLUME 92.2 fL (80.0-94.0); MEAN PLATELET VOLUME 8.5 fl (7.4-10.4); MONOCYTES % 10.3 % (2.0-8.0); NEUTROPHILS % 66.3 % (40.0-76.0); PLATELET 331 x1000/uL (130-400); RED BLOOD CELL COUNT 2.78 mill/uL (4.7-6.1); RED CELL DISTRIBUTION WIDTH 17.3 % (11.6-14.6); WHITE BLOOD COUNT 7.4 x1000/uL (4.5-11.0)
[2023-02-14 07:34] LABS: INR 1.1; PROTHROMBIN TIME 11.4 sec (9.6-11.0)
[2023-02-14] MEDS ORDERED: LIDOCAINE HCL 1% 10 MG/ML 10ML VIAL ONE (07:38)
[2023-02-14] MEDS ORDERED: HEPARIN 1000 UNITS/ML 10ML ONE (07:38)
[2023-02-14 07:53] LABS: ALANINE AMINOTRANSFERASE 25 IU/L (10-49); ALBUMIN 4.1 g/dL (3.2-4.8); ASPARTATE AMINOTRANSFERASE 31 IU/L (<34); BILIRUBIN TOTAL 0.2 mg/dL (0.1-1.0); CALCIUM 10.1 mg/dL (8.7-10.4); CARBON DIOXIDE 29 mEq/L (21-32); CHLORIDE 106 mEq/L (98-107); GLUCOSE 77 mg/dL (70-105); POTASSIUM 4.5 mEq/L (3.5-5.1); PROTEIN TOTAL 7.5 g/dL (6.0-8.3); SODIUM 144 mEq/L (136-145); UREA NITROGEN BLOOD 40 mg/dL (9-23)
[2023-02-14 07:56] LABS: CREATININE 9.9 mg/dL (0.6-1.3)
[2023-02-14] MEDS ORDERED: FENTANYL CITRATE/PF 50MCG/ML 2ML VIAL ONE (08:57)
[2023-02-14] MEDS ORDERED: FENTANYL CITRATE/PF 50MCG/ML 2ML VIAL IV NR (09:15)
[2023-02-14] MEDS ORDERED: IOHEXOL-300 50 ML BOTTLE IV ONE (09:42)
== END 2023-02-14 10:25 | disposition home or self-care (01) ==
LOC: ER 04:30
DX: T82.41XA Breakdown (mechanical) of vascular dialysis catheter, initial encounter (principal); N18.6 End stage renal disease
CPT/HCPCS: 36581; 80053; 85025; 85610; 36415; 77001; 99285; 96365; 96375; J3010; Q9967; J0690; J1644; J3490; C1893; C1750; C1769; 99152; 99153; G0500

== ENCOUNTER 2023-03-27 05:53 | Emergency (ER) | payer MEDICARE, MEDICAID ==
[2023-03-27] VITALS (11 sets, daily range): BP systolic 91–113; BP diastolic 56–76; PULSE 66–75; RESP 12–18; TEMP 98; O2SAT 93
[~2023-03-27] VITALS: Ht 177.8 cm; Wt 80.0 kg
[2023-03-27 08:52] LABS: EOSINOPHILS % 4.6 % (0.0-5.0); HEMATOCRIT. 33.9 % (42.0-52.0); HEMOGLOBIN. 10.7 g/dL (14.0-18.0); LYMPHOCYTES % 15.5 % (20.0-50.0); MEAN CORPUSCULAR HEMOGLOBIN 27.9 pg (28.0-32.0); MEAN CORPUSCULAR HGB CONC 31.6 g/dL (31.0-37.0); MEAN CORPUSCULAR VOLUME 88.3 fL (80.0-94.0); MONOCYTES % 10.3 % (2.0-8.0); NEUTROPHILS % 68.6 % (40.0-76.0); PLATELET 200 x1000/uL (130-400); RED BLOOD CELL COUNT 3.84 mill/uL (4.7-6.1); RED CELL DISTRIBUTION WIDTH 17.5 % (11.6-14.6); WHITE BLOOD COUNT 4.1 x1000/uL (4.5-11.0)
[2023-03-27 09:05] LABS: INR 1.1; PROTHROMBIN TIME 11.5 sec (9.6-11.0)
[2023-03-27 09:21] LABS: ALANINE AMINOTRANSFERASE 8 IU/L (10-49); ALBUMIN 4.5 g/dL (3.2-4.8); ASPARTATE AMINOTRANSFERASE 19 IU/L (<34); BILIRUBIN TOTAL 0.3 mg/dL (0.1-1.0); CALCIUM 10.8 mg/dL (8.7-10.4); CARBON DIOXIDE 29 mEq/L (21-32); CHLORIDE 103 mEq/L (98-107); GLUCOSE 72 mg/dL (70-105); POTASSIUM 3.9 mEq/L (3.5-5.1); PROTEIN TOTAL 7.3 g/dL (6.0-8.3); SODIUM 142 mEq/L (136-145); UREA NITROGEN BLOOD 31 mg/dL (9-23)
[2023-03-27 09:43] LABS: CREATININE 7.5 mg/dL (0.6-1.3)
[2023-03-27] MEDS: CEFAZOLIN 1000MG PREMIX 50 ML IV NR (10:00)
[2023-03-27] MEDS ORDERED: LIDOCAINE HCL 1% 10 MG/ML 10ML VIAL ONE (10:11)
[2023-03-27] MEDS ORDERED: FENTANYL CITRATE/PF 50MCG/ML 2ML VIAL ONE (10:12)
[2023-03-27] MEDS: FENTANYL CITRATE/PF 50MCG/ML 2ML VIAL IV ONE (10:25)
[2023-03-27] MEDS ORDERED: IOHEXOL-300 50 ML BOTTLE IV ONE (10:56)
== END 2023-03-27 12:36 | disposition home or self-care (01) ==
LOC: ER 05:53
DX: Z49.01 Encounter for fitting and adjustment of extracorporeal dialysis catheter (principal); Z79.899 Other long term (current) drug therapy
CPT/HCPCS: 36558; 80053; 85025; 85610; 36415; 77001; 96365; 96375; 99284; J3010; Q9967; J0690; J1642; J3490; C1750; C1725; C1769; 99152; 99153; G0500

== ENCOUNTER 2023-04-02 05:39 | Emergency (ER) | payer MEDICARE, MEDICAID ==
[2023-04-02] VITALS (24 sets, daily range): BP systolic 123–147; BP diastolic 81–91; PULSE 68–80; RESP 12–16; TEMP 97.8; O2SAT 91
[~2023-04-02] VITALS: Ht 177.8 cm; Wt 80.2 kg
[2023-04-02] MEDS ORDERED: LIDOCAINE HCL 1% 10 MG/ML 10ML VIAL ONE ×2 (07:06→08:58)
[2023-04-02] MEDS ORDERED: CEFAZOLIN 1000MG PREMIX 50 ML IV ONE (07:06)
[2023-04-02] MEDS ORDERED: HEPARIN 1000 UNITS/ML 10ML ONE (07:07)
[2023-04-02 07:40] LABS: BASOPHILS % 0.5 % (0.0-2.0); EOSINOPHILS % 5.4 % (0.0-5.0); HEMATOCRIT. 35.4 % (42.0-52.0); HEMOGLOBIN. 11.4 g/dL (14.0-18.0); LYMPHOCYTES % 14.2 % (20.0-50.0); MEAN CORPUSCULAR HEMOGLOBIN 28.4 pg (28.0-32.0); MEAN CORPUSCULAR HGB CONC 32.1 g/dL (31.0-37.0); MEAN CORPUSCULAR VOLUME 88.3 fL (80.0-94.0); MEAN PLATELET VOLUME 8.5 fl (7.4-10.4); MONOCYTES % 9.9 % (2.0-8.0); PLATELET 200 x1000/uL (130-400); RED BLOOD CELL COUNT 4.01 mill/uL (4.7-6.1); RED CELL DISTRIBUTION WIDTH 17.9 % (11.6-14.6); WHITE BLOOD COUNT 4.2 x1000/uL (4.5-11.0)
[2023-04-02 07:54] LABS: ALANINE AMINOTRANSFERASE < 7 IU/L (10-49); ALBUMIN 4.5 g/dL (3.2-4.8); ASPARTATE AMINOTRANSFERASE 18 IU/L (<34); BILIRUBIN TOTAL 0.3 mg/dL (0.1-1.0); CALCIUM 10.6 mg/dL (8.7-10.4); CARBON DIOXIDE 28 mEq/L (21-32); CHLORIDE 104 mEq/L (98-107); GLUCOSE 72 mg/dL (70-105); POTASSIUM 4.3 mEq/L (3.5-5.1); PROTEIN TOTAL 7.2 g/dL (6.0-8.3); SODIUM 142 mEq/L (136-145); UREA NITROGEN BLOOD 48 mg/dL (9-23)
[2023-04-02 07:57] LABS: PARTIAL THROMBOPLASTIN TIME 32.8 sec (23.4-31.0); PROTHROMBIN TIME 11.1 sec (9.6-11.0)
[2023-04-02 08:13] LABS: CREATININE 10.3 mg/dL (0.6-1.3)
[2023-04-02] MEDS ORDERED: FENTANYL CITRATE/PF 50MCG/ML 2ML VIAL ONE (08:21)
[2023-04-02] MEDS: FENTANYL CITRATE/PF 50MCG/ML 2ML VIAL IV NR (08:25)
[2023-04-02] MEDS: CEFAZOLIN 1000MG PREMIX 50 ML IV NR (08:25)
[2023-04-02] MEDS ORDERED: IOHEXOL-300 50 ML BOTTLE IV ONE (08:52)
== END 2023-04-02 10:43 | disposition home or self-care (01) ==
LOC: ER 06:04
DX: T82.49XA Other complication of vascular dialysis catheter, initial encounter (principal); Z98.890 Other specified postprocedural states
CPT/HCPCS: 36558; 80053; 85025; 85610; 85730; 36415; 77001; 99284; 96365; 96375; J3010; Q9967; J0690; J1644; J3490; C1750; C1725; C1769 ×2; C1766; 99152; 99153; G0500

== ENCOUNTER 2023-05-19 11:31 | Emergency (ER) | payer MEDICARE, MEDICAID ==
[~2023-05-19] VITALS: Ht 175.3 cm; Wt 82.0 kg
[2023-05-19 11:46] VITALS: BP 120/90; RESP 16; TEMP 98.4; O2SAT 100
[2023-05-19 12:06] VITALS: PULSE 88
== END 2023-05-19 15:36 | disposition left against medical advice (07) ==
LOC: ER 12:01
DX: T85.611A Breakdown (mechanical) of intraperitoneal dialysis catheter, initial encounter (principal); I12.0 Hypertensive chronic kidney disease with stage 5 chronic kidney disease or end stage renal disease; N18.6 End stage renal disease; Z99.2 Dependence on renal dialysis; Z79.899 Other long term (current) drug therapy; X58.XXXA Exposure to other specified factors, initial encounter
CPT/HCPCS: 99281

== ENCOUNTER 2023-05-20 05:12 | Emergency (ER) | payer MEDICARE, MEDICAID ==
[2023-05-20] VITALS (11 sets, daily range): BP systolic 123–151; BP diastolic 79–103; PULSE 64–78; RESP 12–21; TEMP 98.4; O2SAT 96
[~2023-05-20] VITALS: Ht 175.3 cm; Wt 79.8 kg
[2023-05-20 07:25] LABS: EOSINOPHILS % 5.8 % (0.0-5.0); HEMATOCRIT. 38.2 % (42.0-52.0); HEMOGLOBIN. 11.9 g/dL (14.0-18.0); LYMPHOCYTES % 16.7 % (20.0-50.0); MEAN CORPUSCULAR HEMOGLOBIN 27.2 pg (28.0-32.0); MEAN CORPUSCULAR VOLUME 87.7 fL (80.0-94.0); MEAN PLATELET VOLUME 9.2 fl (7.4-10.4); MONOCYTES % 8.2 % (2.0-8.0); NEUTROPHILS % 68.3 % (40.0-76.0); PLATELET 184 x1000/uL (130-400); RED BLOOD CELL COUNT 4.36 mill/uL (4.7-6.1); RED CELL DISTRIBUTION WIDTH 19.1 % (11.6-14.6); WHITE BLOOD COUNT 4.3 x1000/uL (4.5-11.0)
[2023-05-20] MEDS ORDERED: LIDOCAINE HCL 1% 10 MG/ML 10ML VIAL ONE (08:13)
[2023-05-20] MEDS ORDERED: HEPARIN 1000 UNITS/ML 10ML ONE (08:14)
[2023-05-20] MEDS ORDERED: IOHEXOL-300 50 ML BOTTLE IV ONE (08:14)
[2023-05-20] MEDS: CEFAZOLIN 1000MG PREMIX 50 ML IV NR (09:15)
[2023-05-20] MEDS: FENTANYL CITRATE/PF 50MCG/ML 2ML VIAL IV NR (09:23)
[2023-05-20 09:38] LABS: PROTHROMBIN TIME 11.4 sec (9.6-11.0)
[2023-05-20 09:44] LABS: ALANINE AMINOTRANSFERASE 13 IU/L (10-49); ALBUMIN 4.5 g/dL (3.2-4.8); ASPARTATE AMINOTRANSFERASE 18 IU/L (<34); BILIRUBIN TOTAL 0.3 mg/dL (0.1-1.0); CALCIUM 10.2 mg/dL (8.7-10.4); CARBON DIOXIDE 25 mEq/L (21-32); CHLORIDE 106 mEq/L (98-107); GLUCOSE 61 mg/dL (70-105); POTASSIUM 4.5 mEq/L (3.5-5.1); PROTEIN TOTAL 7.4 g/dL (6.0-8.3); SODIUM 144 mEq/L (136-145); UREA NITROGEN BLOOD 69 mg/dL (9-23)
[2023-05-20 09:46] LABS: CREATININE 12.3 mg/dL (0.6-1.3)
== END 2023-05-20 12:30 | disposition left against medical advice (07) ==
LOC: ER 05:24 → CANBEDREQ 19:44
DX: T83.018A Breakdown (mechanical) of other urinary catheter, initial encounter (principal); E78.00 Pure hypercholesterolemia, unspecified; I12.0 Hypertensive chronic kidney disease with stage 5 chronic kidney disease or end stage renal disease; N18.6 End stage renal disease; E11.9 Type 2 diabetes mellitus without complications; Z98.890 Other specified postprocedural states; Z99.2 Dependence on renal dialysis
CPT/HCPCS: 36558; 80053; 85025; 85610; 36415; 77001; 96365; 96375; 99285; J3010; Q9967; J0690; J1644; J3490; C1750; C1769

== ENCOUNTER 2023-08-26 05:59 | Emergency (ER) | payer MEDICARE, MEDICAID ==
[~2023-08-26] VITALS: Ht 175.3 cm; Wt 81.0 kg
[2023-08-26] VITALS (11 sets, daily range): BP systolic 132–154; BP diastolic 80–104; PULSE 66–72; RESP 12–16; TEMP 98.2; O2SAT 90
[2023-08-26] MEDS ORDERED: SODIUM CHLORIDE 0.9% 1000ML BAG (SEPSIS BOLUS) IV ONE (08:15)
[2023-08-26 08:42] LABS: BASOPHILS % 0.6 % (0.0-2.0); EOSINOPHILS % 6.1 % (0.0-5.0); HEMATOCRIT. 42.3 % (42.0-52.0); HEMOGLOBIN. 13.1 g/dL (14.0-18.0); LYMPHOCYTES % 19.1 % (20.0-50.0); MEAN CORPUSCULAR HEMOGLOBIN 27.2 pg (28.0-32.0); MEAN CORPUSCULAR VOLUME 87.8 fL (80.0-94.0); MEAN PLATELET VOLUME 8.6 fl (7.4-10.4); MONOCYTES % 10.2 % (2.0-8.0); PLATELET 171 x1000/uL (130-400); RED BLOOD CELL COUNT 4.81 mill/uL (4.7-6.1); RED CELL DISTRIBUTION WIDTH 19.5 % (11.6-14.6); WHITE BLOOD COUNT 3.7 x1000/uL (4.5-11.0)
[2023-08-26 08:55] LABS: INR 1.1
[2023-08-26 09:04] LABS: CALCIUM 8.9 mg/dL (8.7-10.4)
[2023-08-26] MEDS ORDERED: LIDOCAINE HCL 1% 10 MG/ML 10ML VIAL ONE ×2 (09:13→10:42)
[2023-08-26 09:14] LABS: CREATININE 9.1 mg/dL (0.6-1.3)
[2023-08-26] MEDS ORDERED: CEFAZOLIN 1000MG PREMIX 50 ML IV ONE (10:21)
[2023-08-26] MEDS: FENTANYL CITRATE/PF 50MCG/ML 2ML VIAL IV ONE (10:35)
[2023-08-26] MEDS: CEFAZOLIN 1000MG PREMIX 50 ML IV NR (10:35)
[2023-08-26] MEDS ORDERED: FENTANYL CITRATE/PF 50MCG/ML 2ML VIAL ONE (10:52)
== END 2023-08-26 11:40 | disposition left against medical advice (07) ==
LOC: ER 05:59 → CANBEDREQ 11:39 → ER 11:40
DX: T82.41XA Breakdown (mechanical) of vascular dialysis catheter, initial encounter (principal); N18.6 End stage renal disease; Z99.2 Dependence on renal dialysis; Z98.890 Other specified postprocedural states; X58.XXXA Exposure to other specified factors, initial encounter; Y93.89 Activity, other specified; Y92.89 Other specified places as the place of occurrence of the external cause; Y99.8 Other external cause status
CPT/HCPCS: 99285; 96365; 71045; 96366; 96375; 80048; 83605; 85025; 85610; 87040; 36415; 84145; 77001; J3010; J0690; J1642; J3490; C1750; C1769; 99152; 99153; J7030; G0500

== ENCOUNTER 2023-10-01 05:47 | Emergency (ER) | payer MEDICARE, MEDICAID ==
[~2023-10-01] VITALS: Ht 175.3 cm; Wt 85.0 kg
[2023-10-01] VITALS (10 sets, daily range): BP systolic 138–148; BP diastolic 85–94; PULSE 63–72; RESP 14–16; TEMP 98.2; O2SAT 95
[2023-10-01 06:48] LABS: POTASSIUM 5.4 mEq/L (3.5-5.1)
[2023-10-01 06:56] LABS: INR 1.1; PROTHROMBIN TIME 12.2 sec (9.6-11.0)
[2023-10-01 07:08] LABS: BASOPHILS % 1.1 % (0.0-2.0); EOSINOPHILS % 5.3 % (0.0-5.0); HEMATOCRIT. 40.1 % (42.0-52.0); HEMOGLOBIN. 12.5 g/dL (14.0-18.0); MEAN CORPUSCULAR HEMOGLOBIN 27.6 pg (28.0-32.0); MEAN CORPUSCULAR HGB CONC 31.1 g/dL (31.0-37.0); MEAN CORPUSCULAR VOLUME 88.7 fL (80.0-94.0); MEAN PLATELET VOLUME 9.6 fl (7.4-10.4); NEUTROPHILS % 67.6 % (40.0-76.0); PLATELET 192 x1000/uL (130-400); RED BLOOD CELL COUNT 4.52 mill/uL (4.7-6.1); RED CELL DISTRIBUTION WIDTH 17.9 % (11.6-14.6); WHITE BLOOD COUNT 5.2 x1000/uL (4.5-11.0)
[2023-10-01] MEDS ORDERED: LIDOCAINE HCL 1% 10 MG/ML 10ML VIAL ONE (08:06)
[2023-10-01] MEDS ORDERED: CEFAZOLIN 1000MG PREMIX 50 ML IV ONE (08:06)
[2023-10-01] MEDS: CEFAZOLIN 1000MG PREMIX 50 ML IV NR (10:00)
[2023-10-01] MEDS ORDERED: FENTANYL CITRATE/PF 50MCG/ML 2ML VIAL ONE (10:13)
[2023-10-01] MEDS: FENTANYL CITRATE/PF 50MCG/ML 2ML VIAL IV NR (10:20)
== END 2023-10-01 11:24 | disposition home or self-care (01) ==
LOC: ER 05:47
DX: T82.41XA Breakdown (mechanical) of vascular dialysis catheter, initial encounter (principal); Z98.890 Other specified postprocedural states; Z79.899 Other long term (current) drug therapy
CPT/HCPCS: 36581; 80048; 85025; 85610; 36415; 77001; 99284; 96365; 96375; J3010; J0690; J1642; J3490; C1750; C1769; 99152; 99153; G0500

== ENCOUNTER 2023-10-06 06:00 | Emergency (ER) | payer MEDICARE, MEDICAID ==
[~2023-10-06] VITALS: Ht 175.3 cm; Wt 83.8 kg
[2023-10-06 06:21] VITALS: BP 134/95; PULSE 76; RESP 18; TEMP 98; O2SAT 93
[2023-10-06 07:08] LABS: BASOPHILS % 0.8 % (0.0-2.0); DIFFERENTIAL COMMENT 0; EOSINOPHILS % 6.3 % (0.0-5.0); HEMATOCRIT. 40.9 % (42.0-52.0); HEMOGLOBIN. 12.5 g/dL (14.0-18.0); LYMPHOCYTES % 15.1 % (20.0-50.0); MEAN CORPUSCULAR HEMOGLOBIN 27.6 pg (28.0-32.0); MEAN CORPUSCULAR HGB CONC 30.6 g/dL (31.0-37.0); MEAN CORPUSCULAR VOLUME 90.3 fL (80.0-94.0); MEAN PLATELET VOLUME 9.1 fl (7.4-10.4); MONOCYTES % 10.5 % (2.0-8.0); NEUTROPHILS % 67.3 % (40.0-76.0); PLATELET 187 x1000/uL (130-400); RED BLOOD CELL COUNT 4.52 mill/uL (4.7-6.1); RED CELL DISTRIBUTION WIDTH 18.3 % (11.6-14.6); WHITE BLOOD COUNT 4.6 x1000/uL (4.5-11.0)
[2023-10-06 07:15] LABS: POTASSIUM 5.6 mEq/L (3.5-5.1)
[2023-10-06 07:17] LABS: CALCIUM 9.6 mg/dL (8.7-10.4)
[2023-10-06 07:18] LABS: INR 1.1; PROTHROMBIN TIME 11.9 sec (9.6-11.0)
[2023-10-06 07:26] LABS: CREATININE 11.3 mg/dL (0.6-1.3)
[2023-10-06] MEDS ORDERED: IOHEXOL-300 50 ML BOTTLE IV ONE (10:49)
[2023-10-06] MEDS ORDERED: LIDOCAINE HCL 1% 10 MG/ML 10ML VIAL ONE (10:49)
== END 2023-10-06 11:54 | disposition home or self-care (01) ==
LOC: ER 06:10
DX: T83.018A Breakdown (mechanical) of other urinary catheter, initial encounter (principal); N18.6 End stage renal disease; Z20.822 Contact with and (suspected) exposure to COVID-19; Z99.2 Dependence on renal dialysis; X58.XXXA Exposure to other specified factors, initial encounter; Y93.89 Activity, other specified; Y92.89 Other specified places as the place of occurrence of the external cause; Y99.8 Other external cause status
CPT/HCPCS: 80048; 85025; 85610; 36415; 12001; 99285; 87426; Q9967; J1642; J3490; C1893; C1769 ×2

== ENCOUNTER 2023-10-08 06:03 | Emergency (ER) | payer MEDICARE, MEDICAID ==
[~2023-10-08] VITALS: Ht 175.3 cm; Wt 82.7 kg
[2023-10-08 06:10] VITALS: PULSE 72; RESP 16; O2SAT 92
[2023-10-08 06:15] VITALS: BP 117/76; TEMP 98; O2SAT 93
== END 2023-10-08 07:00 | disposition left against medical advice (07) ==
LOC: ER 06:03
DX: T82.49XA Other complication of vascular dialysis catheter, initial encounter (principal); Z53.21 Procedure and treatment not carried out due to patient leaving prior to being seen by health care provider